=== PATIENT | female | born 1945 | race Caucasian/White ===

== ENCOUNTER 2016-07-20 14:07 | Outpatient (CLI) | payer MEDICARE | END 2016-07-20 14:08 | disposition home or self-care (01) | DX: G47.33 Obstructive sleep apnea (adult) (pediatric) (principal) | CPT/HCPCS: 99215; G0463 ==

== ENCOUNTER 2016-08-30 10:53 | Outpatient (CLI) | payer MEDICARE | END 2016-08-30 10:54 | disposition home or self-care (01) | DX: G47.33 Obstructive sleep apnea (adult) (pediatric) (principal) | CPT/HCPCS: 99214; G0463 ==

== ENCOUNTER 2016-09-28 09:22 | Outpatient (CLI) | payer MEDICARE | END 2016-09-28 09:23 | disposition home or self-care (01) | LOC: SC 09:22 | PROVIDERS: ATTEND Nurse Practitioner Family | DX: G47.33 Obstructive sleep apnea (adult) (pediatric) (principal); R42 Dizziness and giddiness | CPT/HCPCS: 99214; G0463; 99212 ==

== ENCOUNTER 2017-01-10 09:01 | Outpatient (CLI) | payer MEDICARE | END 2017-01-10 09:02 | disposition home or self-care (01) | LOC: SC 09:01 | PROVIDERS: ATTEND Nurse Practitioner Family | DX: G47.33 Obstructive sleep apnea (adult) (pediatric) (principal) | CPT/HCPCS: 99214; G0463; 99212 ==

== ENCOUNTER 2017-02-07 09:53 | Outpatient (CLI) | payer MEDICARE | END 2017-02-07 09:54 | disposition home or self-care (01) | LOC: SC 09:53 | PROVIDERS: ATTEND Nurse Practitioner Family | DX: G47.33 Obstructive sleep apnea (adult) (pediatric) (principal) | CPT/HCPCS: 99214; G0463; 99212 ==

== ENCOUNTER 2017-03-20 18:15 | Outpatient (CLI) | payer MEDICARE | END 2017-03-20 18:16 | disposition EMS.NT | LOC: EMS 18:15 | PROVIDERS: ATTEND Surgery | DX: R55 Syncope and collapse (principal) ==

== ENCOUNTER 2017-05-09 09:48 | Outpatient (CLI) | payer MEDICARE | END 2017-05-09 09:49 | disposition home or self-care (01) | LOC: SC 09:48 | PROVIDERS: ATTEND Nurse Practitioner Family | DX: G47.33 Obstructive sleep apnea (adult) (pediatric) (principal) | CPT/HCPCS: 99214; G0463; 99212 ==

== ENCOUNTER 2017-07-06 08:00 | Outpatient (CLI) | payer MEDICARE ==
[2017-07-06 18:39] LABS: BASOPHILS # (AUTO) 0.1 10^3/uL (0.0-0.1); BASOPHILS % (AUTO) 0.8 %; EOSINOPHILS # (AUTO) 0.2 10^3/uL (0.0-0.7); EOSINOPHILS % (AUTO) 2.3 %; HCT - HEMATOCRIT 40.5 % (37.0-47.0); HGB - HEMOGLOBIN 13.4 g/dL (12.0-16.0); LYMPHOCYTES # (AUTO) 0.9 10^3/uL (1.5-3.5); LYMPHOCYTES % (AUTO) 13.4 %; MEAN CORPUSCULAR HEMOGLOBIN 31.8 pg (27.0-31.0); MEAN CORPUSCULAR VOLUME 96.3 fL (81.0-99.0); MEAN PLATELET VOLUME 9.4 fL (7.9-10.8); MONOCYTES # (AUTO) 0.4 10^3/uL (0.0-1.0); MONOCYTES % (AUTO) 6.2 %; NEUTROPHILS # (AUTO) 5.1 10^3/uL (1.5-6.6); NEUTROPHILS % (AUTO) 77.3 %; NUCLEATED RED BLOOD CELLS AUTO 0.2 /100WBC; RED BLOOD COUNT 4.21 10^6/uL (4.20-5.40); UNCORRECTED WHITE BLOOD COUNT 6.6 x10^3/uL; WHITE BLOOD COUNT 6.6 x10^3/uL (4.8-10.8)
[2017-07-06 19:02] LABS: ALBUMIN/GLOBULIN RATIO 1.2 (1.0-2.2); BILIRUBIN,TOTAL 0.6 mg/dL (0.2-1.0); CALCIUM 9.4 mg/dL (8.5-10.3); CREATININE 1.4 mg/dL (0.4-1.0); POTASSIUM 4.4 mmol/L (3.5-5.0); TOTAL PROTEIN 7.7 g/dL (6.7-8.2)
[2017-07-06 19:10] LABS: HEMOGLOBIN A1C 0.6 g/dL
== END 2017-07-06 23:59 ==
LOC: LAB.WCP 08:00
PROVIDERS: ATTEND Family Medicine
DX: N18.3 Chronic kidney disease, stage 3 (moderate) (principal); R73.01 Impaired fasting glucose
CPT/HCPCS: 36415; 80053; 83036; 85025

== ENCOUNTER 2017-10-12 10:18 | Outpatient (CLI) | payer MEDICARE | END 2017-10-12 10:19 | disposition home or self-care (01) | LOC: SC 10:18 | PROVIDERS: ATTEND Nurse Practitioner Family | DX: G47.33 Obstructive sleep apnea (adult) (pediatric) (principal) | CPT/HCPCS: 99214; G0463; 99212 ==

== ENCOUNTER 2017-11-01 08:00 | Outpatient (CLI) | payer MEDICARE | END 2017-11-01 08:01 | disposition home or self-care (01) | LOC: LAB.R 08:00 | PROVIDERS: ATTEND Family Medicine | DX: R31.9 Hematuria, unspecified (principal) | CPT/HCPCS: 87086 ==

== ENCOUNTER 2018-08-28 08:23 | Outpatient (CLI) | payer MEDICARE | END 2018-08-28 08:24 | disposition critical access hospital (66) | LOC: EMS 08:23 | PROVIDERS: ATTEND Surgery | DX: R07.9 Chest pain, unspecified (principal) | CPT/HCPCS: A0425; A0427 ==

== ENCOUNTER 2018-08-28 08:46 | Emergency (ER) | payer MEDICARE ==
[2018-08-28 09:09] LABS: BASOPHILS # (AUTO) 0.1 10^3/uL (0.0-0.1); BASOPHILS % (AUTO) 0.9 %; EOSINOPHILS # (AUTO) 0.1 10^3/uL (0.0-0.7); EOSINOPHILS % (AUTO) 1.7 %; HGB - HEMOGLOBIN 13.9 g/dL (12.0-16.0); LYMPHOCYTES % (AUTO) 16.3 %; MEAN CORPUSCULAR HEMOGLOBIN 31.9 pg (27.0-31.0); MEAN CORPUSCULAR HGB CONC 34.6 g/dL (32.0-36.0); MEAN CORPUSCULAR VOLUME 92.2 fL (81.0-99.0); MEAN PLATELET VOLUME 8.1 fL (7.9-10.8); MONOCYTES # (AUTO) 0.3 10^3/uL (0.0-1.0); MONOCYTES % (AUTO) 5.4 %; NEUTROPHILS # (AUTO) 4.8 10^3/uL (1.5-6.6); NEUTROPHILS % (AUTO) 75.7 %; PLT - PLATELET COUNT 172 10^3/uL (130-450); RED BLOOD COUNT 4.37 10^6/uL (4.20-5.40); RED CELL DISTRIBUTION WIDTH 13.3 % (12.0-15.0); WHITE BLOOD COUNT 6.3 x10^3/uL (4.8-10.8)
--- NOTE | 2018-08-28 09:21 | ED Physician Documentation ---
PD HPI CHEST PAIN - Stated complaint Stated Complaint: CP - Chief complaint Chief Complaint: Cardiac - History obtained from History obtained from: Patient - History of Present Illness Timing - onset: How many hours ago (2), Today Timing - onset during: Rest (onset at rest at 7 am of left chest pain to left shoulder, associated with nausea and some dyspnea.) Timing - duration: Hours Timing - details: Abrupt onset. No: Still present (improvwed with NTG multiple enroute.) Quality: Pressure, Tightness. No: Sharp, Tearing, Stabbing Location: Left chest Radiation: Left upper extremity Associated symptoms: Shortness of air, Nausea. No: Vomiting, Feeling faint / dizzy, Palpitations, Cough Similar symptoms before: Has not had sx before (No history of vascular coronary disease. She had a pacemaker placed for bradycardia about 4 or 5 years ago in [facility]. She is on Plavix. She states at the time she had stress tests which did not show any coronary artery disease. She has been doing well. She had been prescribed nitroglycerin previously for esophageal spasms and took that today with this chest pain with slight improvement. She had more improvement on route by EMS with nitroglycerin as well. She arrived to the ER with faint residual discomfort.) Recently seen: Not recently seen Review of Systems Constitutional: denies: Fever, Chills Nose: denies: Rhinorrhea / runny nose, Congestion Throat: denies: Sore throat Cardiac: denies: Palpitations, Pedal edema, Calf pain Respiratory: denies: Dyspnea, Cough, Wheezing GI: reports: Nausea. denies: Abdominal Pain, Vomiting, Bloody / black stool : denies: Dysuria, Frequency Neurologic: denies: Generalized weakness, Focal weakness, Numbness, Near syncope, Syncope, Altered mental status, Headache Endocrine: denies: Weight loss, Weight gain, Easy bruising / bleeding PD PAST MEDICAL HISTORY - Past Medical History Cardiovascular: Hypertension, Arrhythmia, Other Respiratory: None Endocrine/Autoimmune: Type 2 diabetes GI: GERD DELIMER: None : None HEENT: None Psych: None Musculoskeletal: Osteoarthritis Derm: None - Past Surgical History Past Surgical History: Yes General: Cholecystectomy - Present Medications Home Medications: Ambulatory Orders Medication Instructions Recorded Confirmed Hydralazine HCl 10 mg PO BID 12/21/12 08/28/18 Potassium Chloride [Klor-Con M20] 20 meq PO BIDAC 12/21/12 08/28/18 Nitroglycerin [Nitrostat] 0.4 mg SL UD PRN 01/25/16 08/28/18 Clopidogrel [Plavix] 75 mg PO DAILY #30 tablet 02/21/16 08/28/18 - Allergies Allergies/Adverse Reactions: Allergies Allergy/AdvReac Type Severity Reaction Status Date / Time codeine Allergy Intermediate Nausea Verified 02/20/16 18:13 aspirin Allergy Unknown Verified 02/20/16 18:28 hydrocodone bitartrate * AdvReac Intermediate Nausea Verified 02/20/16 18:13 [From Vicodin] oxycodone HCl * AdvReac Intermediate Nausea Verified 02/20/16 18:13 [From Percocet] acetaminophen [From Tylenol] AdvReac Mild Nausea Verified 02/20/16 18:13 latex AdvReac Rash Verified 08/28/18 08:52 - Social History Does the pt smoke?: No Smoking Status: Never smoker Does the pt drink ETOH?: No Does the pt have substance abuse?: No - Immunizations Immunizations are current?: Yes - POLST Patient has POLST: No PD ED PE NORMAL - Vitals Vital signs reviewed: Yes - General General: Alert and oriented X 3, No acute distress, Well developed/nourished - HEENT HEENT: Pharynx benign - Neck Neck: Supple, no meningeal sign, No adenopathy - Cardiac Cardiac: RRR, No murmur - Respiratory Respiratory: Clear bilaterally, Other (mild left chestwall tenderness without rash nor sores. ) - Abdomen Abdomen: Normal bowel sounds, Soft, Non tender, Non distended, Other (obese) - Back Back: No CVA TTP - Derm Derm: Normal color - Extremities Extremities: No deformity, No tenderness to palpate, Normal ROM s pain, No edema, No calf tenderness / cord - Neuro Neuro: Alert and oriented X 3, No motor deficit, Normal speech Results - Vitals Vitals: Vital Signs - 24 hr 08/28/18 08/28/18 08/28/18 08:47 08:55 09:55 Temperature 36 C L Heart Rate 60 58 L 60 Respiratory 22 20 15 Rate Blood Pressure 146/78 H 146/78 H 148/76 H O2 Saturation 98 99 94 08/28/18 12:17 Temperature Heart Rate 60 Respiratory 18 Rate Blood Pressure 135/73 H O2 Saturation 97 Oxygen O2 Source Room air - EKG (time done) 08:52 Rate: Rate (enter#) (60) Rhythm: Paced Intervals: LBBB Ischemia: Non specific changes - Labs Labs: Laboratory Tests 08/28/18 08/28/18 08/28/18 09:06 09:06 09:06 WBC 6.3 RBC 4.37 Hgb 13.9 Hct 40.3 MCV 92.2 MCH 31.9 H MCHC 34.6 RDW 13.3 Plt Count 172 MPV 8.1 Neut # (Auto) 4.8 Lymph # (Auto) 1.0 L [place] # (Auto) 0.3 Eos # (Auto) 0.1 Baso # (Auto) 0.1 Absolute Nucleated RBC 0.00 Nucleated RBC % 0.0 Sodium 138 Potassium 3.8 Chloride 98 L Carbon Dioxide 28 Anion Gap 12.0 BUN 32 H Creatinine 1.1 H Estimated GFR (MDRD) 49 L Glucose 162 H Calcium 9.2 Total Bilirubin 1.6 H AST 20 ALT 15 Alkaline Phosphatase 83 Troponin I 0.06 Total Protein 7.2 Albumin 3.8 Globulin 3.4 Albumin/Globulin Ratio 1.1 Lipase 42 08/28/18 10:50 WBC RBC Hgb Hct MCV MCH MCHC RDW Plt Count MPV Neut # (Auto) Lymph # (Auto) [place] # (Auto) Eos # (Auto) Baso # (Auto) Absolute Nucleated RBC Nucleated RBC % Sodium Potassium Chloride Carbon Dioxide Anion Gap BUN Creatinine Estimated GFR (MDRD) Glucose Calcium Total Bilirubin AST ALT Alkaline Phosphatase Troponin I 0.47 Total Protein Albumin Globulin Albumin/Globulin Ratio Lipase - Rads (name of study) chest xray Radiology: Prelim report reviewed, EMP read contemporaneously (no acute process) PD MEDICAL DECISION MAKING - ED course Complexity details: reviewed results (Initial troponin was negative at 0.06. However pain had only been just under 2 hours prior and she had prolonged pain improved with nitro. Therefore did a repeat troponin at 2 hours after the first 1 and it is now 0.49. This would be more consistent with acute myocardial injury as she does not seem to have any heart failure. I talked with [facility] who said it is okay to transfer her to [facility] or [place]. [facility] did not have any beds available. I talked with the ammonium nitrate crystallizer and hospitalist at [place] and a accept the patient in transfer. She remained stable here in the ER without any recurrent chest pains. She was given a Nitropaste as well as an heparin drip. She had taken Plavix and is allergic to aspirin.), considered differential, d/w patient Departure - Departure Disposition: 02 Transfer Acute Care Hosp Clinical Impression: Chest pain at rest, Non-ST elevated myocardial infarction
[2018-08-28 09:23] LABS: ALBUMIN 3.8 g/dL (3.2-5.5); ALBUMIN/GLOBULIN RATIO 1.1 (1.0-2.2); BILIRUBIN,TOTAL 1.6 mg/dL (0.2-1.0); CALCIUM 9.2 mg/dL (8.5-10.3); CREATININE 1.1 mg/dL (0.4-1.0); TOTAL PROTEIN 7.2 g/dL (6.7-8.2)
[2018-08-28] MEDS ORDERED: KETOROLAC 30 MG/ML VIAL IVP STA (09:41)
[2018-08-28] MEDS ORDERED: MAG HYDROX/AL HYDROX/SIMETH 30 ML UDC PO STA (09:41)
[2018-08-28] MEDS ORDERED: NITROGLYCERIN 2% PASTE TOP STA (10:02)
--- NOTE | 2018-08-28 10:12 | XRAY Report ---
Reason: chest pain Procedure Date: 08/28/2018 Accession Number: [id number] / [id number] Procedure: XR - Chest 1 View X-Ray CPT Code: 67279 FULL RESULT: EXAM: CHEST RADIOGRAPHY EXAM DATE: 08/28/2018 10:03 AM. CLINICAL HISTORY: Chest pain. COMPARISON: CHEST 1 VIEW 02/20/2016 6:50 PM. TECHNIQUE: Upright AP view. FINDINGS: Lungs/Pleura: No focal opacities evident. No pleural effusion. No pneumothorax. Mediastinum: Mild cardiomegaly, as before. Pacemaker electrodes are now present projecting over the right atrial appendage and right ventricular apex with cables intact to the pulse generator in the mid left chest. There is minimal aortic arch calcification. Other: None. IMPRESSION: 1. No evidence of active cardiopulmonary disease. 2. Mild cardiomegaly, as before. 3. Dual-chamber pacemaker electrodes are present, new since 2015. RADIA
[2018-08-28] MEDS ORDERED: ONDANSETRON 4 MG/2 ML VIAL IVP STA (10:13)
[2018-08-28] MEDS ORDERED: MORPHINE 2 MG/ML CARPUJECT IVP STA (10:13)
[2018-08-28] MEDS ORDERED: HEPARIN 5,000 UNIT/ML VIAL IVP STA (11:52)
[2018-08-28] MEDS ORDERED: HEPARIN 25000UNITS/500ML (D5W) 25,000 UNIT/500 ML BAG IV STA (11:52)
[2018-08-28 13:39] VITALS: BP 131/77
== END 2018-08-28 13:40 | disposition short-term general hospital (02) ==
LOC: ED 08:46
DX: R07.9 Chest pain, unspecified (principal); I21.4 Non-ST elevation (NSTEMI) myocardial infarction; I44.7 Left bundle-branch block, unspecified; I10 Essential (primary) hypertension; E11.9 Type 2 diabetes mellitus without complications
CPT/HCPCS: 36415; 71045; 80053; 83690; 84484; 85025; 93005; 96365; 96375; 99284; A9270; 99285

== ENCOUNTER 2018-08-28 14:13 | Outpatient (CLI) | payer MEDICARE | END 2018-08-28 14:14 | disposition short-term general hospital (02) | LOC: EMS 14:13 | PROVIDERS: ATTEND Surgery | DX: I21.4 Non-ST elevation (NSTEMI) myocardial infarction (principal) | CPT/HCPCS: A0425; A0426 ==

== ENCOUNTER 2018-09-14 08:00 | Outpatient (CLI) | payer MEDICARE | END 2018-09-14 23:59 | disposition home or self-care (01) | LOC: LAB.WCP 08:00 | PROVIDERS: ATTEND Family Medicine | DX: I48.91 Unspecified atrial fibrillation (principal); Z79.01 Long term (current) use of anticoagulants ==

== ENCOUNTER 2018-09-21 08:00 | Outpatient (CLI) | payer MEDICARE | END 2018-09-21 23:59 | disposition home or self-care (01) | LOC: LAB.WCP 08:00 | PROVIDERS: ATTEND Nurse Practitioner | DX: I48.0 Paroxysmal atrial fibrillation (principal); Z79.01 Long term (current) use of anticoagulants ==

== ENCOUNTER 2018-09-28 08:00 | Outpatient (CLI) | payer MEDICARE | END 2018-09-28 23:59 | disposition home or self-care (01) | LOC: LAB.WCP 08:00 | PROVIDERS: ATTEND Nurse Practitioner | DX: I48.0 Paroxysmal atrial fibrillation (principal); Z79.01 Long term (current) use of anticoagulants ==

== ENCOUNTER 2018-11-12 13:15 | Outpatient (CLI) | payer MEDICARE | END 2018-11-12 13:16 | disposition home or self-care (01) | LOC: SC 13:15 | PROVIDERS: ATTEND Nurse Practitioner Family | DX: G47.33 Obstructive sleep apnea (adult) (pediatric) (principal); E66.01 Morbid (severe) obesity due to excess calories; Z68.41 Body mass index [BMI] 40.0-44.9, adult | CPT/HCPCS: 99214; G0463; 99212 ==

== ENCOUNTER 2018-11-28 19:30 | Outpatient (CLI) | payer MEDICARE | END 2018-11-28 19:31 | disposition home or self-care (01) | LOC: SC 19:30 | PROVIDERS: ATTEND Internal Medicine Pulmonary Disease | DX: G47.33 Obstructive sleep apnea (adult) (pediatric) (principal) | CPT/HCPCS: 95810 ==

== ENCOUNTER 2018-12-11 10:27 | Outpatient (CLI) | payer MEDICARE | END 2018-12-11 10:28 | disposition home or self-care (01) | LOC: SC 10:27 | PROVIDERS: ATTEND Nurse Practitioner Family | DX: G47.33 Obstructive sleep apnea (adult) (pediatric) (principal) | CPT/HCPCS: 99215; G0463; 99212 ==

== ENCOUNTER 2020-04-01 16:57 | Outpatient (CLI) | payer MEDICARE ==
--- NOTE | 2020-04-01 17:00 | XRAY Report ---
PROCEDURE: Chest 2 View X-Ray INDICATIONS: MUSCLE TWITCH TECHNIQUE: 2 view(s) of the chest. COMPARISON: Chest x-ray 08/28/2018 FINDINGS: Surgical changes and devices: Pacemaker. Lungs and pleura: There is mild appearance of left basilar/retrocardiac opacity particularly blunting of the costophrenic angle. Mediastinum: Mediastinal contours are normal. Heart size is enlarged. Bones and chest wall: No suspicious bony abnormalities. Soft tissues appear unremarkable. IMPRESSION: Left basilar/retrocardiac opacity blunting of the costophrenic angle. There is likely tr fernandez effusion. Area of superimposed atelectasis and/or pneumonia cannot be excluded. Reviewed by: Mana Morales MD on 04/01/2020 4:58 PM PDT Approved by: Mana Morales MD on 04/01/2020 4:58 PM PDT Station ID: [id number]
[2020-04-01 18:37] LABS: BASOPHILS % (AUTO) 0.7 %; EOSINOPHILS # (AUTO) 0.2 10^3/uL (0.0-0.7); EOSINOPHILS % (AUTO) 3.8 %; HGB - HEMOGLOBIN 14.7 g/dL (12.0-16.0); LYMPHOCYTES # (AUTO) 1.2 10^3/uL (1.5-3.5); LYMPHOCYTES % (AUTO) 19.5 %; MEAN CORPUSCULAR HEMOGLOBIN 31.2 pg (27.0-31.0); MEAN CORPUSCULAR VOLUME 97.7 fL (81.0-99.0); MONOCYTES # (AUTO) 0.4 10^3/uL (0.0-1.0); MONOCYTES % (AUTO) 6.3 %; NEUTROPHILS # (AUTO) 4.2 10^3/uL (1.5-6.6); NEUTROPHILS % (AUTO) 69.5 %; PLT - PLATELET COUNT 191 10^3/uL (130-450); RED BLOOD COUNT 4.71 10^6/uL (4.20-5.40); RED CELL DISTRIBUTION WIDTH 12.7 % (12.0-15.0)
[2020-04-01 18:55] LABS: ALBUMIN 4.1 g/dL (3.2-5.5); ALBUMIN/GLOBULIN RATIO 1.4 (1.0-2.2); ALKALINE PHOSPHATASE 60 IU/L (42-121); ALT ALANINE AMINOTRANSFERASE 12 IU/L (10-60); AST ASPARTATE AMINOTRANSFERASE 15 IU/L (10-42); BILIRUBIN,TOTAL 0.9 mg/dL (0.2-1.0); BUN - BLOOD UREA NITROGEN 41 mg/dL (6-20); CALCIUM 9.3 mg/dL (8.5-10.3); CARBON DIOXIDE - CO2 28 mmol/L (21-32); CHLORIDE 104 mmol/L (101-111); CHOL/HDL RATIO 2.7 (<4.4); CHOLESTEROL 123 mg/dL; CREATININE 1.2 mg/dL (0.4-1.0); GLUCOSE 106 mg/dL (70-100); HDL CHOLESTEROL 46 mg/dL; LDL CHOLESTEROL,CALCULATED 39 mg/dL; LDL/HDL RATIO 0.8 (<4.4); SODIUM 142 mmol/L (135-145); TOTAL PROTEIN 7.1 g/dL (6.7-8.2); VLDL CHOLESTEROL 38 mg/dL
[2020-04-01 19:34] LABS: BILIRUBIN,URINE NEGATIVE (NEGATIVE); GLUCOSE, URINE (UA) NEGATIVE (NEGATIVE); KETONES,URINE (UA) NEGATIVE (NEGATIVE); LEUKOCYTE ESTERASE, URINE NEGATIVE (NEGATIVE); NITRITE,URINE NEGATIVE (NEGATIVE); OCCULT BLOOD,URINE NEGATIVE (NEGATIVE); PH,URINE 5.5 PH (5.0-7.5); PROTEIN,URINE NEGATIVE (NEGATIVE); UROBILINOGEN,URINE 0.2 (NORMAL) E.U./dL (NORMAL)
[2020-04-01 19:45] LABS: BACTERIA,URINE None Seen /HPF (None Seen); CASTS, URINE 11-25 Hyaline Casts /LPF; CLARITY,URINE CLEAR (CLEAR); RBC,URINE None Seen /HPF (0-5); SQUAMOUS EPITHELIAL CELL,UR NONE SEEN (<= Few)
[2020-04-01 20:09] LABS: HEMOGLOBIN A1c% 5.5 % (4.27-6.07)
== END 2020-04-01 23:59 | disposition home or self-care (01) ==
LOC: DI.WCP 16:57
PROVIDERS: ATTEND Family Medicine
DX: R25.3 Fasciculation (principal); I42.8 Other cardiomyopathies; Z95.0 Presence of cardiac pacemaker; R73.01 Impaired fasting glucose; E78.5 Hyperlipidemia, unspecified; N18.3 Chronic kidney disease, stage 3 (moderate)
CPT/HCPCS: 36415; 71046; 80053; 80061; 81001; 83036; 83721; 83735; 85025; 87086

== ENCOUNTER 2021-02-02 13:43 | Outpatient (CLI) | payer MEDICARE ==
[2021-02-02 18:41] LABS: BASOPHILS # (AUTO) 0.1 10^3/uL (0.0-0.1); BASOPHILS % (AUTO) 0.8 %; EOSINOPHILS # (AUTO) 0.2 10^3/uL (0.0-0.7); EOSINOPHILS % (AUTO) 2.9 %; HCT - HEMATOCRIT 46.4 % (37.0-47.0); HGB - HEMOGLOBIN 15.2 g/dL (12.0-16.0); LYMPHOCYTES # (AUTO) 1.4 10^3/uL (1.5-3.5); LYMPHOCYTES % (AUTO) 23.3 %; MEAN CORPUSCULAR HEMOGLOBIN 32.5 pg (27.0-31.0); MEAN CORPUSCULAR HGB CONC 32.8 g/dL (32.0-36.0); MEAN CORPUSCULAR VOLUME 99.4 fL (81.0-99.0); MEAN PLATELET VOLUME 10.8 fL (7.9-10.8); MONOCYTES # (AUTO) 0.4 10^3/uL (0.0-1.0); MONOCYTES % (AUTO) 7.2 %; NEUTROPHILS % (AUTO) 65.6 %; PLT - PLATELET COUNT 209 10^3/uL (130-450); RED BLOOD COUNT 4.67 10^6/uL (4.20-5.40); RED CELL DISTRIBUTION WIDTH 12.7 % (12.0-15.0); WHITE BLOOD COUNT 6.2 x10^3/uL (4.8-10.8)
[2021-02-02 18:52] LABS: BILIRUBIN,URINE NEGATIVE (NEGATIVE); GLUCOSE, URINE (UA) NEGATIVE (NEGATIVE); KETONES,URINE (UA) NEGATIVE (NEGATIVE); LEUKOCYTE ESTERASE, URINE NEGATIVE (NEGATIVE); NITRITE,URINE NEGATIVE (NEGATIVE); OCCULT BLOOD,URINE NEGATIVE (NEGATIVE); PROTEIN,URINE NEGATIVE (NEGATIVE); UROBILINOGEN,URINE 0.2 (NORMAL) E.U./dL (NORMAL)
[2021-02-02 18:55] LABS: ALBUMIN 4.1 g/dL (3.2-5.5); ALBUMIN/GLOBULIN RATIO 1.4 (1.0-2.2); ALKALINE PHOSPHATASE 58 IU/L (42-121); ALT ALANINE AMINOTRANSFERASE 15 IU/L (10-60); AST ASPARTATE AMINOTRANSFERASE 17 IU/L (10-42); BILIRUBIN,TOTAL 1.2 mg/dL (0.2-1.0); BUN - BLOOD UREA NITROGEN 40 mg/dL (6-20); CALCIUM 9.2 mg/dL (8.5-10.3); CARBON DIOXIDE - CO2 29 mmol/L (21-32); CHLORIDE 102 mmol/L (101-111); CHOL/HDL RATIO 4.5 (<4.4); CHOLESTEROL 228 mg/dL; CLARITY,URINE CLEAR (CLEAR); CREATININE 1.2 mg/dL (0.4-1.0); GFR - MDRD 44 (>89); GLUCOSE 110 mg/dL (70-100); HDL CHOLESTEROL 51 mg/dL; LDL CHOLESTEROL,CALCULATED 137 mg/dL; LDL/HDL RATIO 2.7 (<4.4); POTASSIUM 4.7 mmol/L (3.5-5.0); SODIUM 141 mmol/L (135-145); TRIGLYCERIDES 201 mg/dL; URIC ACID 9.4 mg/dL (2.6-7.2); VLDL CHOLESTEROL 40 mg/dL
[2021-02-02 18:56] LABS: THYROID STIMULATING HORMONE 3.89 uIU/mL (0.34-5.60)
[2021-02-02 19:18] LABS: BACTERIA,URINE Many /HPF (None Seen); RBC,URINE None Seen /HPF (0-5); SQUAMOUS EPITHELIAL CELL,UR MANY Squamous (<= Few); WBC,URINE 0-3 /HPF (0-5)
[2021-02-02 20:55] LABS: ESTIMATED AVERAGE GLUCOSE 111 mg/dL (70-100); HEMOGLOBIN A1c% 5.5 % (4.27-6.07)
== END 2021-02-02 23:59 | disposition home or self-care (01) ==
LOC: LAB.WCP 13:43
PROVIDERS: ATTEND Family Medicine
DX: E11.9 Type 2 diabetes mellitus without complications (principal); F03.90 Unspecified dementia, unspecified severity, without behavioral disturbance, psychotic disturbance, mood disturbance, and anxiety
CPT/HCPCS: 36415; 80053; 80061; 81001; 82607; 83036; 83721; 84443; 84550; 85025; 87086

== ENCOUNTER 2021-04-06 17:07 | Observation (INO) | payer MEDICARE ==
--- NOTE | 2021-04-06 17:40 | ED Physician Documentation ---
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 : None HEENT: None Psych: None Musculoskeletal: Osteoarthritis Derm: None - Past Surgical History Past Surgical History: Yes General: Cholecystectomy - Present Medications Home Medications: Ambulatory Orders Medication Instructions Recorded Confirmed Hydralazine HCl 10 mg PO BID 12/21/12 08/28/18 Potassium Chloride [Klor-Con M20] 20 meq PO BIDAC 12/21/12 08/28/18 Nitroglycerin [Nitrostat] 0.4 mg SL UD PRN 01/25/16 08/28/18 Clopidogrel [Plavix] 75 mg PO DAILY #30 tablet 02/21/16 08/28/18 - Allergies Allergies/Adverse Reactions: Allergies Allergy/AdvReac Type Severity Reaction Status Date / Time codeine Allergy Intermediate Nausea Verified 04/06/21 17:21 aspirin Allergy Unknown Verified 04/06/21 17:21 metoprolol Allergy Unknown Verified 04/06/21 17:21 morphine Allergy Unknown Verified 04/06/21 17:21 simvastatin [From Zocor] Allergy Unknown Verified 04/06/21 17:21 Sulfa (Sulfonamide Allergy Unknown Verified 04/06/21 17:21 Antibiotics) hydrocodone bitartrate * AdvReac Intermediate Nausea Verified 04/06/21 17:21 [From Vicodin] oxycodone HCl * AdvReac Intermediate Nausea Verified 04/06/21 17:21 [From Percocet] acetaminophen [From Tylenol] AdvReac Mild Nausea Verified 04/06/21 17:21 latex AdvReac Rash Verified 04/06/21 17:21 - Social History Does the pt smoke?: No Smoking Status: Never smoker Does the pt drink ETOH?: No Does the pt have substance abuse?: No - Immunizations Immunizations are current?: Yes - POLST Patient has POLST: No Results - Vitals Vitals: Vital Signs - 24 hr 04/06/21 04/06/21 17:21 17:24 Temperature 36.4 C L 36.5 C Heart Rate 76 76 Respiratory 20 20 Rate Blood Pressure 138/74 H 138/74 H O2 Saturation 75 L 95 Oxygen O2 Source Nasal cannula Oxygen Flow Rate 4 - EKG (time done) No standard instances Rate: Rate (enter#) (76) Rhythm: NSR [place]: Normal Intervals: LBBB Ischemia: Other (ST elevation due to IVCD)
--- NOTE | 2021-04-06 17:42 | XRAY Report ---
PROCEDURE: Chest 1 View X-Ray INDICATIONS: Chest Pain TECHNIQUE: One view of the chest was acquired. COMPARISON: Chest x-ray, two-view, 04/01/2020. FINDINGS: Surgical changes and devices: There is a cardiac pacemaker in appropriate position. Lungs and pleura: Bilateral hilar infiltrates consistent with pulmonary edema. Small pleural effusio ns are present bilaterally. No pneumothorax. Mediastinum: Mediastinal contours appear normal. Heart size is markedly enlarged. Bones and chest wall: No suspicious bony lesions. Overlying soft tissues appear unremarkable. IMPRESSION: 1. Marked cardiomegaly. 2. Congestive heart failure. Reviewed by: Edgard Porter MD on 04/06/2021 5:40 PM PDT Approved by: Edgard Porter MD on 04/06/2021 5:40 PM PDT Station ID: [id number]
[2021-04-06 17:49] LABS: BASOPHILS % (AUTO) 0.5 %; EOSINOPHILS % (AUTO) 0.2 %; HCT - HEMATOCRIT 42.4 % (37.0-47.0); HGB - HEMOGLOBIN 13.2 g/dL (12.0-16.0); LYMPHOCYTES # (AUTO) 0.6 10^3/uL (1.5-3.5); LYMPHOCYTES % (AUTO) 10.2 %; MEAN CORPUSCULAR HEMOGLOBIN 31.6 pg (27.0-31.0); MEAN CORPUSCULAR HGB CONC 31.1 g/dL (32.0-36.0); MEAN CORPUSCULAR VOLUME 101.4 fL (81.0-99.0); MEAN PLATELET VOLUME 10.1 fL (7.9-10.8); MONOCYTES # (AUTO) 0.2 10^3/uL (0.0-1.0); MONOCYTES % (AUTO) 3.4 %; NEUTROPHILS # (AUTO) 4.8 10^3/uL (1.5-6.6); NEUTROPHILS % (AUTO) 85.5 %; PLT - PLATELET COUNT 178 10^3/uL (130-450); RED BLOOD COUNT 4.18 10^6/uL (4.20-5.40); WHITE BLOOD COUNT 5.6 x10^3/uL (4.8-10.8)
[2021-04-06] MEDS ORDERED: ONDANSETRON 4 MG/2 ML VIAL IVP STA (17:50)
[2021-04-06 18:05] LABS: ALBUMIN 3.7 g/dL (3.2-5.5); ALBUMIN/GLOBULIN RATIO 1.2 (1.0-2.2); BILIRUBIN,TOTAL 1.1 mg/dL (0.2-1.0); CALCIUM 9.2 mg/dL (8.5-10.3); CREATININE 1.2 mg/dL (0.4-1.0); POTASSIUM 5.4 mmol/L (3.5-5.0); TOTAL PROTEIN 6.9 g/dL (6.7-8.2)
[2021-04-06] MEDS ORDERED: FUROSEMIDE 40 MG/4 ML VIAL IVP STA (18:18)
[2021-04-06] MEDS ORDERED: ACETAMINOPHEN 325 MG TABLET PO PRN (20:52)
[2021-04-06] MEDS ORDERED: SODIUM CHLORIDE FLUSH 0.9% 10 ML SYRINGE IVP PRN (20:52)
[2021-04-06] MEDS ORDERED: ONDANSETRON 4 MG/2 ML VIAL IVP PRN (20:52)
--- NOTE | 2021-04-06 21:04 | HISTORY & PHYSICAL EXAMINATION ---
Chief Complaint - Chief Complaint Chief Complaint: SOA History of Present Illness - Admitted From Admitted From:: ED - History Obtained From History obtained from: ED provider and EMR review - History of Present Illness HPI Comment/Other: This is a 76-year-old white female with a history of morbid obesity, sleep apnea who is ordered to be on CPAP but she does not use it, history of hypertension, prior bradycardia that required pacemaker implantation and Hx of diabetes me llitus. The patient has been short of breath for a week and family informed the ED doctor that she has been using sublingual nitroglycerin many times a day. The patient cannot remember if he she has had chest pain or give details about the shortness of breath but the family helped with her answers. Today she went to her PCP where apparently an oxygen saturation was documented at 87% on room air but no specific orders were made. Back at home, the daughter noticed that the patient had much worsening tachypnea and sounded like she was "gurgling" while sleeping upright in a recliner. The patient presented to the emergency room and was found to be hypoxic. On 4 L of oxygen she is saturating 92%. A chest x-ray showed that she has cardiomegaly and pulmonary edema. Significant labs show a BNP of 2500 (whereas the last BNP in 2016 was 250). Her EKG shows a LBBB, but this is not new. Her last Echo done here was in 2013, and showed a "mildly depressed LVEF". The patient has received Lasix 40 mg IV in the ED, but no Morphine, since it is listed as an allergy, and the Hospitalist team is called for further management of a CHF exacerbation. 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 : reports: None HEENT: reports: None Psych: reports: None Musculoskeletal: reports: Osteoarthritis Derm: reports: None MRSA Hx?: No - Past Surgical History General: reports: Cholecystectomy - Family & Social History Family History Comment/Other: Unavailable, as pt is obtunded Living arrangement: At home - POLST Patient has POLST: No Meds/Allgy - Home Medications Home Medications: Ambulatory Orders Medication Instructions Recorded Confirmed Hydralazine HCl 10 mg PO BID 12/21/12 08/28/18 Potassium Chloride [Klor-Con M20] 20 meq PO BIDAC 12/21/12 08/28/18 Nitroglycerin [Nitrostat] 0.4 mg SL UD PRN 01/25/16 08/28/18 Clopidogrel [Plavix] 75 mg PO DAILY #30 tablet 02/21/16 08/28/18 - Allergies Allergies/Adverse Reactions: Allergies Allergy/AdvReac Type Severity Reaction Status Date / Time codeine Allergy Intermediate Nausea Verified 04/06/21 17:21 aspirin Allergy Unknown Verified 04/06/21 17:21 metoprolol Allergy Unknown Verified 04/06/21 17:21 morphine Allergy Unknown Verified 04/06/21 17:21 simvastatin [From Zocor] Allergy Unknown Verified 04/06/21 17:21 Sulfa (Sulfonamide Allergy Unknown Verified 04/06/21 17:21 Antibiotics) hydrocodone bitartrate * AdvReac Intermediate Nausea Verified 04/06/21 17:21 [From Vicodin] oxycodone HCl * AdvReac Intermediate Nausea Verified 04/06/21 17:21 [From Percocet] acetaminophen [From Tylenol] AdvReac Mild Nausea Verified 04/06/21 17:21 latex AdvReac Rash Verified 04/06/21 17:21 Review of Systems - Cardiovascular Cariovascular: reports: Exertional dyspnea - Respiratory Respiratory: reports: Orthopnea, SOB at rest, SOB with exertion - All Other Systems All Other Systems: reports: Other (Unable to obtain information, as pt is currently obtunded) Exam - Vital Signs Reviewed Vital Signs: Yes Vital Signs: Vital Signs x48h Temp Pulse Resp BP Pulse Ox 04/06/21 20:30 62 20 119/68 100 04/06/21 20:00 36.5 C 63 20 117/62 97 04/06/21 19:30 64 16 117/61 96 04/06/21 19:00 66 20 114/67 96 04/06/21 18:24 62 20 110/77 96 04/06/21 17:54 67 16 100/72 96 04/06/21 17:24 36.5 C 76 20 138/74 H 95 04/06/21 17:21 36.4 C L 76 20 138/74 H 75 L - Physical Exam General Appearance: positive: No acute distress, Lethargic, Other (Arouses only to sternal rub) Eyes Bilateral: positive: Other (Asleep) ENT: positive: Other (Obese and cannot examine JVP) Neck: positive: Nml inspection Respiratory: positive: No respiratory distress, Breath sounds nml (anteriorly) Cardiovascular: positive: Regular rate & rhythm, Systolic murmur (3/6, harsh, late-peaking, heard loudest at base, no gallop) Abdomen: positive: Non-tender, Nml bowel sounds, No distention Skin: positive: Warm, Dry Extremities: positive: Other (4+ edema to posterior thighs) Neurologic/Psychiatric: positive: Other (Obtunded, opens eyes to sternal rub) Conclusion/Plan - Problem List (1) Pulmonary edema Conclusion/Plan: Place the patient in Observation status, on telemetry. Recheck troponin to assure they are "flat". Continue with Lasix 40 mg IV twice daily, 40 mg chosen because of her CKD. Restart her Hydralazine, Plavix and other home meds when they are reconciled. Begin a low sodium diet. Follow strict I's and O's and daily weights. Follow her BUN/creat, BNP and Mag daily. Obtain a complete Echo, using Definity if necessary, to improve images. Start B-tristan, MORIAH or ARB and Spironolactone, if the EF is < 40% by Echo. (2) Murmur Conclusion/Plan: She has a 3/6 late-peaking systolic murmur at the base, which I suspect is aortic stenosis, p-robably sevbere. This may be the cause of her CHF. A complete Echo has been ordered. She normally goes to [facility], where she might have a Blueprint Developer that we may need to contact for recommendations (3) Altered mental status Conclusion/Plan: In the ED, she was confused but conversing. In her hospital room, she is now obtunded. O2 sats are 100%, and she is probably over-oxygenating. Will order target saturation at 88% or higher, to allow hypoxic drive to ventilate. If no better, will obtain ABG, and head CT. Addendum: her O2 was turned down from 4L to 2L and she became more awake, then down to 1L and she was still saturating at 92% (4) EARLE (obstructive sleep apnea) Conclusion/Plan: Unfortunately, she is non-compliant with CPAP, per Hx. Will supplement O2, sats of 88% or higher are acceptable. (5) CKD (chronic kidney disease) Conclusion/Plan: Her BUN/creat are abnormal but at her usual baseline. Avoid nephrotoxins (6) Diabetes Conclusion/Plan: Will order a carb controlled diet with hypoglycemia protocol and fingerstick checks with sliding scale insulin coverage while here. Obtain A1c with morning labs. (7) Morbid obesity with BMI of 40.0-44.9, adult Conclusion/Plan: As per Hx. - Lab Results Fish Bones: 04/06/21 17:39 04/06/21 17:39 - Diagnostic Imaging Results Diagnostic Imaging Results: positive: Final report reviewed
[2021-04-06 21:58] LABS: B. PARAPERTUSSIS- RESP PCR PAN NOT DETECTED; B. PERTUSSIS- RESP PCR PANEL NOT DETECTED; C. PNEUMONIAE- RESP PCR PANEL NOT DETECTED; CORONAVIRUS 229E-RESP PCR NOT DETECTED; CORONAVIRUS HKU1-RESP PCR NOT DETECTED; CORONAVIRUS NL63-RESP PCR NOT DETECTED; CORONAVIRUS OC43-RESP PCR NOT DETECTED; HUMAN METAPNEUMOVIRUS NOT DETECTED; INFLUENZA A- RESP PCR PANEL NOT DETECTED; INFLUENZA B - RESP PCR PANEL NOT DETECTED; M. PNEUMONIAE- RESP PCR PANEL NOT DETECTED; PARAINFLUENZA VIRUS 1 NOT DETECTED; PARAINFLUENZA VIRUS 2 NOT DETECTED; PARAINFLUENZA VIRUS 3 NOT DETECTED; PARAINFLUENZA VIRUS 4 NOT DETECTED; RHINOVIRUS/ENTEROVIRUS NOT DETECTED; RSV- RESP PCR PANEL NOT DETECTED; SARS-CoV-2 -RESP PCR PANEL NOT DETECTED
[2021-04-06] MEDS: INSULIN ASPART 300 UNIT/3 ML PEN SUBQ SCH (23:28)
[2021-04-06] MEDS: ENOXAPARIN 40 MG/0.4 ML SYRINGE SUBQ SCH (23:43)
[2021-04-06] MEDS: SODIUM CHLORIDE FLUSH 0.9% 10 ML SYRINGE IVP SCH (23:43)
[2021-04-07 00:25] LABS: BILIRUBIN,URINE NEGATIVE (NEGATIVE); GLUCOSE, URINE (UA) NEGATIVE (NEGATIVE); KETONES,URINE (UA) NEGATIVE (NEGATIVE); LEUKOCYTE ESTERASE, URINE NEGATIVE (NEGATIVE); NITRITE,URINE NEGATIVE (NEGATIVE); OCCULT BLOOD,URINE NEGATIVE (NEGATIVE); PROTEIN,URINE NEGATIVE (NEGATIVE); UROBILINOGEN,URINE 0.2 (NORMAL) E.U./dL (NORMAL)
[2021-04-07 00:31] LABS: BACTERIA,URINE Few /HPF (None Seen); CLARITY,URINE CLEAR (CLEAR); RBC,URINE 0-5 /HPF (0-5); SQUAMOUS EPITHELIAL CELL,UR FEW Squamous (<= Few); WBC,URINE 0-3 /HPF (0-5)
[2021-04-07] MEDS ORDERED: FUROSEMIDE 40 MG/4 ML VIAL IVP SCH (06:00)
[2021-04-07 06:23] LABS: HCT - HEMATOCRIT 42.9 % (37.0-47.0); HGB - HEMOGLOBIN 13.4 g/dL (12.0-16.0); MEAN CORPUSCULAR HEMOGLOBIN 31.8 pg (27.0-31.0); MEAN CORPUSCULAR HGB CONC 31.2 g/dL (32.0-36.0); MEAN CORPUSCULAR VOLUME 101.7 fL (81.0-99.0); MEAN PLATELET VOLUME 9.9 fL (7.9-10.8); RED BLOOD COUNT 4.22 10^6/uL (4.20-5.40); RED CELL DISTRIBUTION WIDTH 12.8 % (12.0-15.0); WHITE BLOOD COUNT 6.1 x10^3/uL (4.8-10.8)
[2021-04-07 06:29] LABS: CALCIUM 8.8 mg/dL (8.5-10.3); CREATININE 1.4 mg/dL (0.4-1.0); MAGNESIUM 2.1 mg/dL (1.7-2.8); POTASSIUM 4.9 mmol/L (3.5-5.0)
[2021-04-07] MEDS: INSULIN ASPART 300 UNIT/3 ML PEN SUBQ SCH ×2 (07:28→12:13)
[2021-04-07] MEDS: ENOXAPARIN 40 MG/0.4 ML SYRINGE SUBQ SCH (08:12)
[2021-04-07] MEDS: SODIUM CHLORIDE FLUSH 0.9% 10 ML SYRINGE IVP SCH (08:14)
[2021-04-07 08:51] LABS: ESTIMATED AVERAGE GLUCOSE 105 mg/dL (70-100); HEMOGLOBIN A1c% 5.3 % (4.27-6.07)
--- NOTE | 2021-04-07 09:19 | PHARMACY PROGRESS NOTE ---
- Best Possible Medication History Admit Date and Time: 04/06/212051 Processed by: Pharmacy Medication History completed: Yes Patient Interview: Completed (MED REC COMPLETED BY PHARMAY CRANE HOOKER; PATIENT ABLE TO CONFIRM HOME MEDICATIONS) As the person ultimately responsible for medication therapy, providers are able to order a medication from an existing home medication list in [facility] via the "Reconcile Routine" prior to Confirmation of that medication by support assistant. Such practice is discouraged except when the physician, in their clinical judgment, deems that a medical need exists for a medication without regard to previous use.
--- NOTE | 2021-04-07 11:38 | DISCHARGE SUMMARY ---
Discharge Summary Admit Date: 04/06/21 Discharge Date: 04/07/21 Discharging Provider: Arin Quintana Primary Care Provider: Isabelle Nguyen Code Status: Attempt Resuscitation Condition at Discharge: Fair Discharge Disposition: 01 Home, Self Care - DIAGNOSES Admission Diagnoses: Pulmonary edema Murmur Altered mental status Obstructive sleep apnea Chronic kidney disease Diabetes Morbid obesity with BMI of 40-44.9 adult Discharge Diagnoses with Status of Each Condition: Pulmonary edema: Acute. Improved with diuresis Severe aortic stenosis: Chronic. Patient to follow-up with cardiology on April 23, 2021 Altered mental status: Acute. Likely secondary tohypoxia. Resolved Obstructive sleep apnea: Chronic. Patient does not tolerate CPAP. Chronic kidney disease Diabetes: Chronic. Stable Morbid obesity with BMI of 40-44.9 adult: Chronic. 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 The patient has been short of breath for a week and family informed the ED doctor that she has been using sublingual nitroglycerin many times a day. The patient cannot remember if he she has had chest pain or give details about the shortness of breath but the family helped with her answers. Today she went to her PCP where apparently an oxygen saturation was documented at 87% on room air but no specific orders were made. Back at home, the daughter noticed that the patient had much worsening tachypnea and sounded like she was "gurgling" while sleeping upright in a recliner. The patient presented to the emergency room and was found to be hypoxic. On 4 L of oxygen she is saturating 92%. A chest x-ray showed that she has cardiomegaly and pulmonary edema. Significant labs show a BNP of 2500 (whereas the last BNP in 2016 was 250). Her EKG shows a LBBB, but this is not new. Her last Echo done here was in 2013, and showed a "mildly depressed LVEF". The patient has received Lasix 40 mg IV in the ED, but no Morphine, since it is listed as an allergy, and the Hospitalist team is called for further management of a CHF exacerbation. - HOSPITAL COURSE Hospital Course: Patient was treated with Lasix 40 mg IV twice daily during her hospital stay. Her respiratory status improved significantly. By the time of discharge she was requiring 0.5 L of oxygen via nasal cannula to keep her oxygen in the 90s. However with activity her oxygen saturation drops into the 80s as a result she will be discharged home with supplemental oxygen. Her mental status improved significantly. By the time of discharge she was back to her baseline. She is able to carry on a reasonable conversation. She had a 2D echocardiogram done on 04/07/2021 which showed severe left ventricular enlargement. Moderate concentric left ventricular hypertrophy. Overall left ventricular systolic function is moderately globally impaired with an ejection fraction of 35 to 40%. Pseudonormal left ventricular filling pattern consistent with grade 2 diastolic dysfunction. No obvious regional wall motion abnormality noted though assessment is difficult in the presence of arrhythmia. Falls chordae tendon they noted in the left ventricle. Right ventricle appeared mildly enlarged. The right ventricular systolic function was normal. Pacemaker leads seen in the right atrium and right ventricle. Left atrium: Severe increase Left atrial volume index. Right atrium: Moderate to severe right atrial enlargement. Aortic valve: Severe aortic stenosis with peak/mean pressure gradient of 97 mmHg/65mmHg Trivial pericardial effusion present. No mass or thrombus identified. There was no pleural effusion noted. I had a conversation with the patient at bedside and her daughter Gale over the phone, Emphasizing the importance of cardiology follow-up. The patient's straight knife machine cutter was Dr. Jennie Canada with [facility] cardiology. However she is recently retired. They have an appointment to establish with a new straight knife machine cutter on April 23, 2021. Patient is being discharged in stable condition with supplemental oxygen for home. - ALLERGIES Allergies/Adverse Reactions: Allergies Allergy/AdvReac Type Severity Reaction Status Date / Time codeine Allergy Intermediate Nausea Verified 04/06/21 17:21 aspirin Allergy Unknown Verified 04/06/21 17:21 egg Allergy Cramps Verified 04/07/21 09:33 metoprolol Allergy Unknown Verified 04/06/21 17:21 morphine Allergy Unknown Verified 04/06/21 17:21 simvastatin [From Zocor] Allergy Unknown Verified 04/06/21 17:21 Sulfa (Sulfonamide Allergy Unknown Verified 04/06/21 17:21 Antibiotics) hydrocodone bitartrate * AdvReac Intermediate Nausea Verified 04/06/21 17:21 [From Vicodin] oxycodone HCl * AdvReac Intermediate Nausea Verified 04/06/21 17:21 [From Percocet] acetaminophen [From Tylenol] AdvReac Mild Nausea Verified 04/06/21 17:21 latex AdvReac Rash Verified 04/06/21 17:21 - MEDICATIONS Home Medications: Ambulatory Orders Medication Instructions Recorded Confirmed Hydralazine HCl 10 mg PO BID 12/21/12 04/07/21 Potassium Chloride [Klor-Con M20] 20 meq PO BIDAC 12/21/12 04/07/21 Atorvastatin [Lipitor] 40 mg PO QPM 04/07/21 04/07/21 Dabigatran [Pradaxa] 150 mg PO BID 04/07/21 04/07/21 Furosemide [Lasix] 40 mg PO DAILY 04/07/21 04/07/21 Metoprolol Tartrate [Lopressor] 12.5 mg PO BID 04/07/21 04/07/21 Multivitamin 1 tab PO DAILY 04/07/21 04/07/21 Nitroglycerin [Nitrostat] 0.4 mg SL PRN PRN 04/07/21 04/07/21 Potassium Citrate [Potassium 15 meq PO BID 04/07/21 04/07/21 Citrate ER] - PHYSICAL EXAM AT DISCHARGE General Appearance: positive: No acute distress, Alert Eyes Bilateral: positive: PERRL, EOMI ENT: positive: No signs of dehydration Neck: positive: No JVD, Trachea midline Respiratory: positive: Chest non-tender, No respiratory distress, Breath sounds nml, Other (Mild crackles in lung bases) Cardiovascular: positive: Regular rate & rhythm, Systolic murmur (loud) Abdomen: positive: Non-tender, No organomegaly, Nml bowel sounds, No distention. negative: Guarding, Rebound Skin: positive: No rash, Warm, Dry Extremities: positive: Non-tender, Full ROM, Pedal edema (trace) Neurologic/Psychiatric: positive: Oriented x3, Motor nml - LABS Result Diagrams: 04/07/21 06:15 04/07/21 06:15 - TIME SPENT Time Spent in Discharge (Minutes): 20
[2021-04-07 11:41] VITALS: BP 109/77
--- NOTE | 2021-04-07 11:42 | Discharge Plan ---
Discharge Plan Problem Reviewed?: Yes Disposition: Home, Self Care Condition: Fair Diet: Cardiac Activity Restrictions: Activity as Tolerated Health Concerns: You were admitted to the hospital with acute respiratory failure and hypoxia. In the emergency room your oxygen's level was noted to be 87% on room air. You required 4 L of oxygen to keep your oxygen level around 92%. You had a chest x- ray done which showed you had an enlarged heart and some fluid in the lungs. He also had an echocardiogram done. This is a ultrasound of the heart. It showed severe aortic stenosis and significantly decreased heart function with an ejection fraction of 35%. UA treated with Lasix IV while in the hospital. This improved your respiratory status. It was noted that every time you get up to walk your oxygen level drops. As a result You were assessed for oxygen needs at home and will be provided oxygen upon discharge As a result of the findings of your echocardiogram you have have been strongly encouraged to follow-up with a spool maker. This was also discussed with your daughter Gale who expressed understanding and is agreeable with the plan. You have an appointment to see [facility] cardiology on April 23, 2021. You have been advised to keep the appointment. You will be discharged in stable condition. You may also follow-up with your primary care physician Dr. Baljit Hale in 7 days. No Smoking: If you smoke, Please STOP! Call for help. Follow-up with: Baljit Hale DO [Primary Care Provider] -
== END 2021-04-07 14:15 | disposition home or self-care (01) ==
LOC: ED 17:07 → MS2 20:52
PROVIDERS: ADMIT Internal Medicine; ATTEND Internal Medicine
DX: I13.0 Hypertensive heart and chronic kidney disease with heart failure and stage 1 through stage 4 chronic kidney disease, or unspecified chronic kidney disease (principal); I50.23 Acute on chronic systolic (congestive) heart failure; I35.0 Nonrheumatic aortic (valve) stenosis; G47.33 Obstructive sleep apnea (adult) (pediatric); E11.22 Type 2 diabetes mellitus with diabetic chronic kidney disease; N18.9 Chronic kidney disease, unspecified; I44.7 Left bundle-branch block, unspecified; R01.1 Cardiac murmur, unspecified; Z68.41 Body mass index [BMI] 40.0-44.9, adult; E66.01 Morbid (severe) obesity due to excess calories; Z79.02 Long term (current) use of antithrombotics/antiplatelets; Z20.822 Contact with and (suspected) exposure to COVID-19; Z79.899 Other long term (current) drug therapy; Z95.0 Presence of cardiac pacemaker
CPT/HCPCS: 36415; 71045; 80048; 80053; 81001; 82607; 83036; 83690; 83735; 83880; 84484; 85025; 85027; 87631; 93005; 94761; 96372; 96374; 96375; 96376; 99285; A9270; C8929; G0378; J1650; 0202U; 87086; 93306

== ENCOUNTER 2021-04-29 16:00 | Outpatient (CLI) | payer MEDICARE ==
--- NOTE | 2021-04-29 16:54 | XRAY Report ---
PROCEDURE: Chest 2 View X-Ray INDICATIONS: PLEURAL EFFUSION TECHNIQUE: 2 view(s) of the chest. COMPARISON: April 06, 2015. FINDINGS: SUPPORT DEVICES: Redemonstrated left cardiac device. Interval placement of an aortic valve prosthesis . LUNG/PLEURA: Blunting of the left costophrenic sulci, compatible with pleural fluid. The remaining chele ng zones are well aerated. MEDIASTINUM: Enlargement of the cardiac silhouette, compatible cardiomegaly. BONES/SOFT TISSUES: No acute abnormality. IMPRESSION: 1.Slightly decreased bilateral pleural effusions compared to the prior study. Reviewed by: Nehemias Hagan MD on 04/29/2021 4:53 PM PDT Approved by: Nehemias Hagan MD on 04/29/2021 4:53 PM PDT Station ID: [id number]
== END 2021-04-29 16:01 | disposition home or self-care (01) ==
LOC: DI.N 16:00
PROVIDERS: ATTEND Family Medicine
DX: J90 Pleural effusion, not elsewhere classified (principal)

== ENCOUNTER 2021-05-12 15:56 | Outpatient (CLI) | payer MEDICARE ==
[2021-05-12 16:52] VITALS: BP 132/62
--- NOTE | 2021-05-12 16:52 | SLEEP CARE CONSULTATION ---
Information from patient questionnaire entered by Sunshine Mendoza. I have reviewed and concur with the information entered by Sunshine Mendoza. This document represents the service I personally performed and the decisions made by , Anna Ponce ARNP. History of Present Illness Service Date and Time: 05/12/2021 1556 Previous diagnosis: Severe, Obstructive Sleep Apnea-Hypopnea Syndrome AHI: 39.6 Reason for follow up: annual (Last seen 11/2018) Equipment type: CPAP Equipment obtained from: Juan (haven't gotten any for some time) Mask style: Nasal pillows Year and Where: 2014 and 2018 [facility] additional information: AVERY PANIAGUA was diagnosed to have severe, AHI 39.6, obstructive sleep apnea- hypopnea syndrome and returned today with daughter for CPAP therapy annual follow-up. Patient has not been using her CPAP for at least 2 years because she felt like she was suffocating in the mask. Subjective Missed days of use due to: reports: mask issues, illness Patient concerns: reports: aerophagia, mask discomfort, air blowing in eyes, condensation in mask/hose, nasal congestion, dry mouth, nose, throat. denies: mask leak noise, epistaxis, other Observed to snore while using device: No Current pressure setting perceived as: too low (suffocating) On therapy, patient: reports: other (has not been using it) Initial Tyler Sleepiness Scale score: 3 (in 2014) Current Tyler Sleepiness Scale score: 13 Allergies and Home Medications Drug allergies reviewed: Yes (see list in chart) Home medication list reviewed: Yes Allergy and home medication list: Plavix Clopidagrel Atorvastatin Pantoprazole Sorolacton Furosemide Carvedilol Perdaxa Started on nocturnal oxygen, 1 L NC Review of Systems Review of systems same as previous: No (TAVR procedure on Apr 20, 2021) Physical Exam Blood Pressure: 132/62 (right) Cuff size: wrist Heart Rate: 63 O2 Saturation: 95 Height: 5 ft 9 in Weight: 248 lb Weight change since last visit: 48 pound loss Body Mass Index: 36.6 BMI Classification: Obese Impression and Plan 1. Obstructive Sleep Apnea-Hypopnea Syndrome, severe. Patient has not been using a CPAP for at least 2 years. She is back after a TAVR procedure and being on nocturnal oxygen for hypoxia. She sleeps in her recliner with 1 L NC. Patient's apnea severity and rationale for treatment to reduce apnea, improve sleep quality and reduce cardiovascular and cerebrovascular events was reviewed. I also reviewed the benefit of consistent device use of CPAP for hypertension and arrhythmia. I recommend proceeding to polysomnography to confirm the diagnosis and to assess severity. I obtained agreement to proceed. The pathophysiology of obstructive sleep apnea-hypopnea syndrome was discussed with the patient and health risks of cardiovascular and cerebrovascular disease if not treated. * Schedule polysomnography +- manual CPAP titration study and return in 1-2 weeks after the study to discuss result and initiate therapy. * Avoid long distance driving or driving when feeling sleepy. * Avoid alcohol, sedative and muscle relaxant around bedtime. * Attempt to lose weight. * Review instructions provided by trained office staff on how to prepare for the sleep study. * Return for follow-up after sleep study completed. Counseling Topics: Weight loss health impact Visit Type: In Office Time Spent with Patient (minutes): 28 Provider Statement: I spent 100% of the Face to Face Visit with the patient with greater than 50% spent counseling the patient and coordination of care.
== END 2021-05-12 15:57 | disposition home or self-care (01) ==
LOC: SC 15:56
PROVIDERS: ATTEND Nurse Practitioner Family
DX: G47.33 Obstructive sleep apnea (adult) (pediatric) (principal); E66.9 Obesity, unspecified; Z68.36 Body mass index [BMI] 36.0-36.9, adult
CPT/HCPCS: 99213; G0463; 99212

== ENCOUNTER 2021-06-02 20:42 | Outpatient (CLI) | payer MEDICARE | END 2021-06-02 20:43 | disposition home or self-care (01) | LOC: SC 20:42 | PROVIDERS: ATTEND Nurse Practitioner Family | DX: G47.33 Obstructive sleep apnea (adult) (pediatric) (principal) | CPT/HCPCS: 95810 ==

== ENCOUNTER 2021-06-22 14:29 | Outpatient (CLI) | payer MEDICARE ==
[2021-06-22 15:35] VITALS: BP 132/58
--- NOTE | 2021-06-22 15:35 | SLEEP CARE CONSULTATION ---
Information from patient questionnaire entered by Mauricio Grimm MA. I have reviewed and concur with the information entered by Mauricio Grimm MA. This document represents the service I personally performed and the decisions made by Kris elam Caren J, ARNP. History of Present Illness Service Date and Time: 06/22/2021 1429 Initial Sparks Sleepiness Scale score: 3 (in 2014) Current Sparks Sleepiness Scale score: 2 (in 2020) Additional HPI information: AVERY PANIAGUA returns with daughter for follow up and results of the recently performed polysomnography. I explained the pathophysiology behind obstructive sleep apnea. We then spent quite a bit of time discussing different treatment options. For mild obstructive sleep apnea, surgery and oral appliance are alternatives to nasal CPAP therapy but in moderate or severe cases, nasal CPAP is the most effective and reliable treatment. I reviewed the impact of weight changes on sleep apnea and strongly recommended losing weight. Patient was cautioned about risks of drowsy driving until sleepiness symptoms resolve. Sleep Study - Results Type of Sleep Study: Polysomnography Prior sleep studies: Yes Year and Where: 2014 and 2018 [facility] Polysomnography/Home Sleep Study results: IMPRESSION: The quality of the study is good. The patient had reduced sleep efficiency due to a prolonged awakening in the second half of the night. Despite moderate sleep fragmentation, the sleep architecture was normal. Respiratory monitoring showed moderate obstructive sleep apnea-hypopnea (AHI = 19.4) associated with frequent arousals, oxyhemoglobin desaturation and moderate hypoxia (tracy oxygen saturation of 66%). Baseline oxygen saturation was normal. The respiratory events occurred mainly during REM sleep. The patient only slept supine during this study (supine AHI = 19.4; non-supine = 0.00). Snore was light in intensity. There was no significant periodic leg movement of sleep. Cardiac rhythm was paced. No abnormal behavior (parasomnia) observed during the night. Allergies and Home Medications Home medication list reviewed: Yes (no changes) Review of Systems Review of systems same as previous: Yes (no changes) Physical Exam Vital signs obtained and entered by: Todd VANN Blood Pressure: 132/58 (right ) Cuff size: wrist (PT requests that only use the right arm for BP checks as she broke her left) Heart Rate: 80 O2 Saturation: 92 (with mask) Height: 5 ft 9 in Weight: 248 lb (info from PT skin care technician) Body Mass Index: 36.6 BMI Classification: Obese Impression and Plan 1. Obstructive Sleep Apnea-Hypopnea Syndrome, moderate, with lowest oxygen saturation of 66%. Positive pressure therapy could benefit hypertension and arrhythmia. I explained to patient that she would get the best benefit from CPAP treatment. She has improved from severe obstructive to moderate obstructive sleep apnea. She has lost about 50 pounds and states she will continue to try to lose weight. Patient did use a CPAP in the past and she felt like she was smothering with the mask on and there was lots of condensation in her mask. She was using a nasal pillows mask. She states she sleeps in a recliner, sitting up and she sleeps better without the CPAP. She does not want to restart the CPAP. I reviewed with patient her other options for treatment, including oral appliance, surgery and positional therapy. She did not sleep non-supine so I could not recommend the positional therapy. She did not want to try the other options and she is not a candidate for implantable Inspire device therapy because she has a pacemaker. She is currently on 2L/NC nocturnal oxygen for the last 2 months. Her daughter accompanied her really wants her to treat her EARLE. Patient wants to think about it. I will have her follow up in 1-2 months to see if she has changed her mind or decided upon a treatment option. She is to continue sleeping with her head elevated to help reduce apneas. She is also going to try to lose more weight. * Patient to think about choice of therapy * Continue to try to lose weight. * sleep with head elevated * Return in 1-2 months. Counseling Topics: Weight loss health impact Visit Type: In Office Other Participants: Other (Daughter) Time Spent with Patient (minutes): 29 Provider Statement: I spent 100% of the Face to Face Visit with the patient with greater than 50% spent counseling the patient and coordination of care.
== END 2021-06-22 14:30 | disposition home or self-care (01) ==
LOC: SC 14:29
PROVIDERS: ATTEND Nurse Practitioner Family
DX: G47.33 Obstructive sleep apnea (adult) (pediatric) (principal); E66.9 Obesity, unspecified; Z68.36 Body mass index [BMI] 36.0-36.9, adult
CPT/HCPCS: 99213; G0463; 99212

== ENCOUNTER 2021-12-23 08:06 | Outpatient (CLI) | payer MEDICARE | END 2021-12-23 08:07 | disposition critical access hospital (66) | LOC: EMS 08:06 | DX: S01.81XA Laceration without foreign body of other part of head, initial encounter (principal); W01.198A Fall on same level from slipping, tripping and stumbling with subsequent striking against other object, initial encounter; Y92.000 Kitchen of unspecified non-institutional (private) residence as the place of occurrence of the external cause | CPT/HCPCS: A0425; A0429 ==

== ENCOUNTER → 2022-06-16 | Outpatient (CLI) | payer MEDICARE | END | disposition left against medical advice (07) | LOC: EMS 19:57 | DX: Z03.89 Encounter for observation for other suspected diseases and conditions ruled out (principal); Z79.01 Long term (current) use of anticoagulants ==

== ENCOUNTER 2022-08-03 09:47 | Outpatient (CLI) | payer MEDICARE ==
--- NOTE | 2022-08-03 15:15 | DEXA Report ---
PROCEDURE: Dexa Spine and/or Hip INDICATIONS: POST MENOPAUSAL TECHNIQUE: Dual energy x-ray absorptiometry (DXA) was performed on a [employer]. Regions measur ed are the AP Spine, femoral neck, and if needed forearm. COMPARISON: None. FINDINGS: Lumbar Spine: Bone Mineral Density 1.197 g/cm/cm,T score 0.1, normal Left Femoral Neck: Bone Mineral Density 0.648 g/cm/cm, T score -2.8, osteoporosis Left Hip: Bone Mineral Density 0.714 g/cm/cm,T score -2.3, severe osteopenia (T score greater or equal to -1.0: NORMAL) (T score from -1.1 to -2.4: OSTEOPENIA) (T score less than or equal to -2.5 to: OSTEOPOROSIS) Impression: Osteoporosis within left femoral neck as well as severe osteopenia in the left hip. Patients with diagnosis of osteoporosis or osteopenia should have regular bone mineral density assess ment. For those eligible for Medicare, routine testing is allowed once every 2 years. Testing frequ ency can be increased for patients who have rapidly progressing disease or for those who are receivin g medical therapy to restore bone mass. Reviewed by: Mana Morales MD on 08/03/2022 3:13 PM PST Approved by: Mana Morales MD on 08/03/2022 3:13 PM PST Station ID: [id number]
== END 2022-08-03 09:48 | disposition home or self-care (01) ==
LOC: DI 09:47
PROVIDERS: ATTEND Nurse Practitioner Family
DX: Z78.0 Asymptomatic menopausal state (principal); M81.0 Age-related osteoporosis without current pathological fracture

== ENCOUNTER 2022-08-03 09:48 | Outpatient (CLI) | payer MEDICARE ==
--- NOTE | 2022-08-04 12:17 | Mammography Report ---
BILATERAL DIGITAL SCREENING MAMMOGRAM 3D/2D: 08/03/2022 CLINICAL: Routine screening. Comparison is made to exams dated: 06/17/2015 mammogram, 05/22/2015 mammogram, 09/15/2011 mammogram, and 11/07/2012 mammogram - [facility]. There are scattered areas of fibroglandular density in both breasts (category b / 25%-50% glandular t issue). No significant masses, calcifications, or other findings are seen in either breast. There has been no significant interval change. IMPRESSION: NEGATIVE There is no mammographic evidence of malignancy. A 1 year screening mammogram is recommended. Based on the Tyrer Cuzick model (a risk assessment model) the patients lifetime risk is 2.7% and her 10 year risk is 0.0%. According to the ACR, ACS, and NCCN guidelines, an annual breast MRI exam kirstin g with mammogram is recommended if the patients lifetime risk is 20% or greater. This exam was interpreted at Station ID: [id number]. NOTE: For mammograms, a report in lay terms will be sent to the patient. Approximately 15% of breast malignancies will not be visualized mammographically. In the management of a palpable breast mass, a negative mammogram must not discourage biopsy of a clinically suspicious lesion. Electronically Signed By: Miguel Angel thompson/nestor:08/03/2022 17:15:42 ACR BI-RADS Category 1: Negative 3341F PARENCHYMAL PATTERN: (A) - The breast(s) demonstrate(s) scattered fibroglandular densities. BI-RADS CATEGORY: (1) - 1 RECOMMENDATION: (ANNUAL) - Recommend routine annual screening mammography. [id number] 1 year screening LATERALITY: (B)
== END 2022-08-03 09:49 | disposition home or self-care (01) ==
LOC: DI 09:48
DX: Z12.31 Encounter for screening mammogram for malignant neoplasm of breast (principal)

== ENCOUNTER 2023-04-21 18:47 | Outpatient (CLI) | payer MEDICARE | END 2023-04-21 23:59 | disposition EMS.NT | LOC: EMS 18:47 | DX: Z03.89 Encounter for observation for other suspected diseases and conditions ruled out (principal) ==

== ENCOUNTER 2023-05-31 12:39 | Outpatient (CLI) | payer MEDICARE | END 2023-05-31 12:40 | disposition critical access hospital (66) | LOC: EMS 12:39 | DX: R50.9 Fever, unspecified (principal); M79.89 Other specified soft tissue disorders; F03.90 Unspecified dementia, unspecified severity, without behavioral disturbance, psychotic disturbance, mood disturbance, and anxiety | CPT/HCPCS: A0425; A0429 ==

== ENCOUNTER 2023-05-31 13:06 | Emergency (ER) | payer MEDICARE ==
[2023-05-31 13:26] VITALS: BP 130/60; O2SAT 95
[2023-05-31 13:39] LABS: BASOPHILS % (AUTO) 0.4 %; HCT - HEMATOCRIT 40.2 % (37.0-47.0); HGB - HEMOGLOBIN 13.3 g/dL (12.0-16.0); LYMPHOCYTES # (AUTO) 0.3 10^3/uL (1.5-3.5); LYMPHOCYTES % (AUTO) 2.7 %; MEAN CORPUSCULAR HGB CONC 33.1 g/dL (32.0-36.0); MEAN CORPUSCULAR VOLUME 96.9 fL (81.0-99.0); MEAN PLATELET VOLUME 9.9 fL (7.9-10.8); MONOCYTES # (AUTO) 0.4 10^3/uL (0.0-1.0); MONOCYTES % (AUTO) 3.9 %; NEUTROPHILS # (AUTO) 8.8 10^3/uL (1.5-6.6); NEUTROPHILS % (AUTO) 92.7 %; PLT - PLATELET COUNT 99 10^3/uL (130-450); RED BLOOD COUNT 4.15 10^6/uL (4.20-5.40); RED CELL DISTRIBUTION WIDTH 12.4 % (12.0-15.0); WHITE BLOOD COUNT 9.5 x10^3/uL (4.8-10.8)
[2023-05-31 13:49] LABS: ALBUMIN/GLOBULIN RATIO 1.5 (1.0-2.2); BILIRUBIN,TOTAL 1.7 mg/dL (0.2-1.0); CALCIUM 9.3 mg/dL (8.5-10.3); CREATININE 1.5 mg/dL (0.6-1.3); POTASSIUM 3.8 mmol/L (3.5-4.5); TOTAL PROTEIN 6.7 g/dL (6.4-8.9)
[2023-05-31 15:04] LABS: B. PARAPERTUSSIS- RESP PCR PAN NOT DETECTED; B. PERTUSSIS- RESP PCR PANEL NOT DETECTED; C. PNEUMONIAE- RESP PCR PANEL NOT DETECTED; CORONAVIRUS 229E-RESP PCR NOT DETECTED; CORONAVIRUS HKU1-RESP PCR NOT DETECTED; CORONAVIRUS NL63-RESP PCR NOT DETECTED; CORONAVIRUS OC43-RESP PCR NOT DETECTED; HUMAN METAPNEUMOVIRUS NOT DETECTED; INFLUENZA A- RESP PCR PANEL NOT DETECTED; INFLUENZA B - RESP PCR PANEL NOT DETECTED; M. PNEUMONIAE- RESP PCR PANEL NOT DETECTED; PARAINFLUENZA VIRUS 1 NOT DETECTED; PARAINFLUENZA VIRUS 2 NOT DETECTED; PARAINFLUENZA VIRUS 3 NOT DETECTED; PARAINFLUENZA VIRUS 4 NOT DETECTED; RHINOVIRUS/ENTEROVIRUS NOT DETECTED; RSV- RESP PCR PANEL NOT DETECTED; SARS-CoV-2 -RESP PCR PANEL NOT DETECTED
[2023-05-31 16:39] LABS: BILIRUBIN,URINE NEGATIVE (NEGATIVE); GLUCOSE, URINE (UA) NEGATIVE (NEGATIVE); KETONES,URINE (UA) NEGATIVE (NEGATIVE); LEUKOCYTE ESTERASE, URINE NEGATIVE (NEGATIVE); NITRITE,URINE NEGATIVE (NEGATIVE); OCCULT BLOOD,URINE NEGATIVE (NEGATIVE); PH,URINE 5.5 PH (5.0-7.5); PROTEIN,URINE NEGATIVE (NEGATIVE); UROBILINOGEN,URINE 0.2 (NORMAL) E.U./dL (NORMAL)
[2023-05-31 16:44] LABS: CLARITY,URINE CLEAR (CLEAR)
--- NOTE | 2023-05-31 16:49 | ED Physician Documentation ---
History of Present Illness - Stated complaint Stated Complaint: ARM SWELLING - Chief complaint Chief Complaint: General - History obtained from History obtained from: Patient, Family, EMS - Additonal information Additional information: The patient is sent to the emergency department by her daughter for chief complaint of "not acting like her usual self". The patient has seemed a little more confused than her usual dementia confusion. Otherwise, the patient has been more or less herself per daughter and the patient herself has no complaints. Daughter states that the patient has previously had issues with UTIs and she is wondering if perhaps the patient has one again. She has not had any fevers or chills at home per daughter. No vomiting or diarrhea. 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 : None HEENT: None Psych: None Musculoskeletal: Osteoarthritis Derm: None - Past Surgical History Past Surgical History: Yes General: Cholecystectomy Cardiovascular: Pacemaker - Present Medications Home Medications: Ambulatory Orders Medication Instructions Recorded Confirmed Hydralazine HCl 10 mg PO BID 12/21/12 04/07/21 Potassium Chloride [Klor-Con M20] 20 meq PO BIDAC 12/21/12 04/07/21 Atorvastatin [Lipitor] 40 mg PO QPM 04/07/21 04/07/21 Dabigatran [Pradaxa] 150 mg PO BID 04/07/21 04/07/21 Furosemide [Lasix] 40 mg PO DAILY 04/07/21 04/07/21 Metoprolol Tartrate [Lopressor] 12.5 mg PO BID 04/07/21 04/07/21 Multivitamin 1 tab PO DAILY 04/07/21 04/07/21 Nitroglycerin [Nitrostat] 0.4 mg SL PRN PRN 04/07/21 04/07/21 Potassium Citrate [Potassium 15 meq PO BID 04/07/21 04/07/21 Citrate ER] - Allergies Allergies/Adverse Reactions: Allergies Allergy/AdvReac Type Severity Reaction Status Date / Time codeine Allergy Intermediate Nausea Verified 05/31/23 13:22 aspirin Allergy Unknown Verified 05/31/23 13:22 egg Allergy Cramps Verified 05/31/23 13:22 metoprolol Allergy Unknown Verified 05/31/23 13:22 morphine Allergy Unknown Verified 05/31/23 13:22 simvastatin [From Zocor] Allergy Unknown Verified 05/31/23 13:22 Sulfa (Sulfonamide Allergy Unknown Verified 05/31/23 13:22 Antibiotics) hydrocodone bitartrate * AdvReac Intermediate Nausea Verified 05/31/23 13:22 [From Vicodin] oxycodone HCl * AdvReac Intermediate Nausea Verified 05/31/23 13:22 [From Percocet] acetaminophen [From Tylenol] AdvReac Mild Nausea Verified 05/31/23 13:22 latex AdvReac Rash Verified 05/31/23 13:22 - Social History Does the pt smoke?: No Smoking Status: Never smoker Does the pt drink ETOH?: No Does the pt have substance abuse?: No - Immunizations Immunizations are current?: Yes - POLST Patient has POLST: No PD ED PE NORMAL - Vitals Vital signs reviewed: Yes - General General: No acute distress, Well developed/nourished, Other (Alert, answers questions appropriately.) - HEENT HEENT: Atraumatic, PERRL, EOMI, Moist mucous membranes - Neck Neck: Supple, no meningeal sign - Cardiac Cardiac: RRR, No murmur - Respiratory Respiratory: No respiratory distress, Clear bilaterally - Abdomen Abdomen: Soft, Non tender, Non distended - Derm Derm: Normal color, Warm and dry, No rash - Extremities Extremities: No deformity, Other - Neuro Neuro: Other (Alert, oriented to self and that she is in the ED. No gross deficits otherwise.) - Psych Psych: Normal mood, Normal affect Results - Vitals Vitals: Oxygen O2 Source Room air - Labs Labs: Laboratory Tests 05/31/23 05/31/23 05/31/23 13:30 13:30 13:45 WBC 9.5 RBC 4.15 L Hgb 13.3 Hct 40.2 MCV 96.9 MCH 32.0 H MCHC 33.1 RDW 12.4 Plt Count 99 L MPV 9.9 Neut # (Auto) 8.8 H Lymph # (Auto) 0.3 L [place] # (Auto) 0.4 Eos # (Auto) 0.0 Baso # (Auto) 0.0 Absolute Nucleated RBC 0.00 Nucleated RBC % 0.0 Sodium 139 Potassium 3.8 Chloride 103 Carbon Dioxide 26 Anion Gap 10.0 BUN 45 H Creatinine 1.5 H Estimated GFR (MDRD) 33 L Glucose 182 H Calcium 9.3 Total Bilirubin 1.7 H AST 25 ALT 11 Alkaline Phosphatase 79 Total Protein 6.7 Albumin 4.0 Globulin 2.7 Albumin/Globulin Ratio 1.5 Lipase 16 Urine Color Urine Clarity Urine pH Ur Specific [place] Urine Protein Urine Glucose (UA) Urine Ketones Urine Occult Blood Urine Nitrite Urine Bilirubin Urine Urobilinogen Ur Leukocyte Esterase Ur Microscopic Review Urine Culture Comments Nasal Adenovirus (PCR) NOT DETECTED Nasal B. parapertussis DNA (PCR) NOT DETECTED Nasal Coronavir 229E PCR NOT DETECTED Nasal Coronavir HKU1 PCR NOT DETECTED Nasal Coronavir NL63 PCR NOT DETECTED Nasal Coronavir OC43 PCR NOT DETECTED Nasal Enterovir/Rhinovir PCR NOT DETECTED Nasal Influenza B PCR NOT DETECTED Nasal Influenza A PCR NOT DETECTED Nasal Parainfluen 1 PCR NOT DETECTED Nasal Parainfluen 2 PCR NOT DETECTED Nasal Parainfluen 3 PCR NOT DETECTED Nasal Parainfluen 4 PCR NOT DETECTED Nasal RSV (PCR) NOT DETECTED Nasal B.pertussis DNA PCR NOT DETECTED Nasal C.pneumoniae (PCR) NOT DETECTED Julián Human Metapneumo PCR NOT DETECTED Nasal M.pneumoniae (PCR) NOT DETECTED Nasal SARS-CoV-2 (PCR) NOT DETECTED 05/31/23 16:22 WBC RBC Hgb Hct MCV MCH MCHC RDW Plt Count MPV Neut # (Auto) Lymph # (Auto) [place] # (Auto) Eos # (Auto) Baso # (Auto) Absolute Nucleated RBC Nucleated RBC % Sodium Potassium Chloride Carbon Dioxide Anion Gap BUN Creatinine Estimated GFR (MDRD) Glucose Calcium Total Bilirubin AST ALT Alkaline Phosphatase Total Protein Albumin Globulin Albumin/Globulin Ratio Lipase Urine Color YELLOW Urine Clarity CLEAR Urine pH 5.5 Ur Specific [place] 1.025 Urine Protein NEGATIVE Urine Glucose (UA) NEGATIVE Urine Ketones NEGATIVE Urine Occult Blood NEGATIVE Urine Nitrite NEGATIVE Urine Bilirubin NEGATIVE Urine Urobilinogen 0.2 (NORMAL) Ur Leukocyte Esterase NEGATIVE Ur Microscopic Review NOT INDICATED Urine Culture Comments NOT INDICATED Nasal Adenovirus (PCR) Nasal B. parapertussis DNA (PCR) Nasal Coronavir 229E PCR Nasal Coronavir HKU1 PCR Nasal Coronavir NL63 PCR Nasal Coronavir OC43 PCR Nasal Enterovir/Rhinovir PCR Nasal Influenza B PCR Nasal Influenza A PCR Nasal Parainfluen 1 PCR Nasal Parainfluen 2 PCR Nasal Parainfluen 3 PCR Nasal Parainfluen 4 PCR Nasal RSV (PCR) Nasal B.pertussis DNA PCR Nasal C.pneumoniae (PCR) Julián Human Metapneumo PCR Nasal M.pneumoniae (PCR) Nasal SARS-CoV-2 (PCR) PD Medical Decision Making - ED course Complexity details: reviewed results, re-evaluated patient, considered differential, d/w patient, d/w family ED course: The patient was evaluated in the emergency department with laboratory studies and urinalysis, as well as respiratory PCR panel. The patient's white blood cell count and H&H were normal. Her abdominal panel showed a creatinine of 1.5 which is within the patient's baseline range. Her urinalysis was completely negative, as was her viral panel. I discussed with the patient's daughter and the patient that she does not have a UTI, nor does she have any other significant abnormalities beyond her baseline to explain the increasing confusion. The patient is quite bright and alert in the ED and conversing vigorously with her daughter. She has no complaints at this point in time, I feel she is stable for discharge home. We have discussed home management of the symptoms, as well as the usual indications for return. Departure - Departure Disposition: 01 Home, Self Care Clinical Impression: Altered mental status Qualifiers: Altered mental status type: unspecified Qualified Code(s): R41.82 - Altered mental status, unspecified Dementia Qualifiers: Dementia type: unspecified type Dementia severity: moderate Dementia behavioral or psychological symptom: without behavioral, psychotic, or mood disturbance or anxiety Qualified Code(s): F03.B0 - Unspecified dementia, moderate, without behavioral disturbance, psychotic disturbance, mood disturbance, and anxiety Condition: Stable Instructions: ED Confusion Comments: Your laboratory studies look good and your urinalysis is completely normal. You have been given fluids to drink by large volume in the emergency department and there is no evidence of a more serious condition at this time. Your vital signs have been stable and you are stable for discharge home. Please follow-up with your primary care physician for further concerns. Forms: PCP List Discharge Date/Time: 05/31/23 17:21
== END 2023-05-31 17:21 | disposition home or self-care (01) ==
LOC: EDBD → EDUNIT# → ED 13:06
DX: R41.82 Altered mental status, unspecified (principal); F03.B0 Unspecified dementia, moderate, without behavioral disturbance, psychotic disturbance, mood disturbance, and anxiety; I10 Essential (primary) hypertension; E11.9 Type 2 diabetes mellitus without complications; Z11.52 Encounter for screening for COVID-19; Z79.899 Other long term (current) drug therapy
CPT/HCPCS: 36415; 80053; 81001; 81003; 83690; 85025; 87086; 87633; 99283

== ENCOUNTER 2023-06-01 16:07 | Outpatient (CLI) | payer MEDICARE | END 2023-06-01 16:08 | disposition short-term general hospital (02) | LOC: EMS 16:07 | DX: R53.1 Weakness (principal); J34.89 Other specified disorders of nose and nasal sinuses | CPT/HCPCS: A0425; A0429 ==

== ENCOUNTER 2023-08-07 09:49 | Outpatient (CLI) | payer MEDICARE ==
[2023-08-07 10:18] LABS: BASOPHILS % (AUTO) 0.5 %; EOSINOPHILS # (AUTO) 0.1 10^3/uL (0.0-0.7); EOSINOPHILS % (AUTO) 1.2 %; HCT - HEMATOCRIT 37.4 % (37.0-47.0); HGB - HEMOGLOBIN 12.6 g/dL (12.0-16.0); LYMPHOCYTES # (AUTO) 0.6 10^3/uL (1.5-3.5); LYMPHOCYTES % (AUTO) 10.2 %; MEAN CORPUSCULAR HEMOGLOBIN 32.2 pg (27.0-31.0); MEAN CORPUSCULAR HGB CONC 33.7 g/dL (32.0-36.0); MEAN CORPUSCULAR VOLUME 95.7 fL (81.0-99.0); MEAN PLATELET VOLUME 10.4 fL (7.9-10.8); MONOCYTES # (AUTO) 0.5 10^3/uL (0.0-1.0); MONOCYTES % (AUTO) 9.5 %; NEUTROPHILS # (AUTO) 4.5 10^3/uL (1.5-6.6); NEUTROPHILS % (AUTO) 78.4 %; PLT - PLATELET COUNT 81 10^3/uL (130-450); RED BLOOD COUNT 3.91 10^6/uL (4.20-5.40); RED CELL DISTRIBUTION WIDTH 13.2 % (12.0-15.0); WHITE BLOOD COUNT 5.7 x10^3/uL (4.8-10.8)
[2023-08-07 10:25] LABS: ALBUMIN 3.4 g/dL (3.2-5.5); ALBUMIN/GLOBULIN RATIO 1.3 (1.0-2.2); BILIRUBIN,TOTAL 1.1 mg/dL (0.2-1.0); CALCIUM 8.8 mg/dL (8.5-10.3); POTASSIUM 3.9 mmol/L (3.5-4.5); TOTAL PROTEIN 6.1 g/dL (6.4-8.9)
--- NOTE | 2023-08-07 20:05 | XRAY Report ---
PROCEDURE: Neck Soft Tissue INDICATIONS: JAW PAIN, SUBMANDIBULAR LYMPH NODE TECHNIQUE: 2 views of the neck were acquired. COMPARISON: None FINDINGS: Airway: The airway appears patent. Soft tissues: Prevertebral soft tissues are normal in thickness. The epiglottis and aryepiglottic f olds appear normal. No soft tissue gas. Bones: No suspicious bony lesions. Visualized cervical spine is normally aligned. Degenerative dis c disease noted in the mid cervical spine results in straightening of normal cervical lordosis IMPRESSION: Degenerative cervical spine changes Reviewed by: Lasha Mirza MD on 08/07/2023 7:04 PM [place] Approved by: Lasha Mirza MD on 08/07/2023 7:04 PM [place] Station ID: [id number]
--- NOTE | 2023-08-07 20:06 | XRAY Report ---
PROCEDURE: Facial Bones 1-2V INDICATIONS: JAW PAIN, SUBMANDIBULAR LYMPH NODE TECHNIQUE: 3 views of the facial bones were acquired. COMPARISON: None FINDINGS: Sinuses: Visualized sinuses demonstrate no air-fluid levels or mucosal thickening. Bones: No fractures. No suspicious bony lesions. Orbital rims and zygomatic arches appear intact. Soft tissues: No suspicious soft tissue densities. IMPRESSION: Unremarkable facial bone radiographs Reviewed by: Lasha Mirza MD on 08/07/2023 7:05 PM [place] Approved by: Lasha Mirza MD on 08/07/2023 7:05 PM AKST Station ID: [id number]
--- NOTE | 2023-08-07 20:08 | XRAY Report ---
PROCEDURE: Mandible 4+V BL INDICATIONS: JAW PAIN, SUBMANDIBULAR LYMPH NODE TECHNIQUE: 6 views of the mandible were acquired. COMPARISON: None FINDINGS: Bones: No fractures or dislocations. No suspicious bony lesions. Soft tissues: Visualized sinuses appear clear. No suspicious soft tissue densities. IMPRESSION: Unremarkable mandibular radiographs Reviewed by: Lasha Mirza MD on 08/07/2023 7:06 PM AKST Approved by: Lasha Mirza MD on 08/07/2023 7:06 PM AKST Station ID: [id number]
== END 2023-08-07 09:50 | disposition home or self-care (01) ==
LOC: LAB 09:49 → DI 09:50
PROVIDERS: ATTEND Physician Assistant
DX: M50.30 Other cervical disc degeneration, unspecified cervical region (principal); I10 Essential (primary) hypertension; A41.9 Sepsis, unspecified organism; R68.84 Jaw pain
CPT/HCPCS: 36415; 80053; 85025; 86140

== ENCOUNTER 2023-08-30 15:22 | Outpatient (CLI) | payer MEDICARE ==
[2023-08-30 15:36] LABS: BASOPHILS # (AUTO) 0.1 10^3/uL (0.0-0.1); BASOPHILS % (AUTO) 0.7 %; EOSINOPHILS # (AUTO) 0.1 10^3/uL (0.0-0.7); EOSINOPHILS % (AUTO) 1.6 %; HCT - HEMATOCRIT 40.8 % (37.0-47.0); LYMPHOCYTES % (AUTO) 14.8 %; MEAN CORPUSCULAR HEMOGLOBIN 31.3 pg (27.0-31.0); MEAN CORPUSCULAR HGB CONC 31.9 g/dL (32.0-36.0); MEAN CORPUSCULAR VOLUME 98.1 fL (81.0-99.0); MEAN PLATELET VOLUME 10.3 fL (7.9-10.8); MONOCYTES # (AUTO) 0.7 10^3/uL (0.0-1.0); MONOCYTES % (AUTO) 9.5 %; NEUTROPHILS % (AUTO) 73.1 %; PLT - PLATELET COUNT 110 10^3/uL (130-450); RED BLOOD COUNT 4.16 10^6/uL (4.20-5.40); RED CELL DISTRIBUTION WIDTH 14.2 % (12.0-15.0); WHITE BLOOD COUNT 6.8 x10^3/uL (4.8-10.8)
== END 2023-08-30 15:23 | disposition home or self-care (01) ==
LOC: LAB 15:22
PROVIDERS: ATTEND Physician Assistant
DX: M10.9 Gout, unspecified (principal); D69.6 Thrombocytopenia, unspecified
CPT/HCPCS: 36415; 84550; 85025

== ENCOUNTER 2023-10-01 20:18 | Outpatient (CLI) | payer MEDICARE | END 2023-10-01 20:19 | disposition EMS.NT | LOC: EMS 20:18 | DX: R53.1 Weakness (principal); R50.9 Fever, unspecified ==

== ENCOUNTER 2023-10-30 16:16 | Outpatient (CLI) | payer MEDICARE ==
[2023-10-30 16:29] LABS: BASOPHILS % (AUTO) 0.9 %; EOSINOPHILS # (AUTO) 0.2 10^3/uL (0.0-0.7); EOSINOPHILS % (AUTO) 4.7 %; HCT - HEMATOCRIT 35.3 % (37.0-47.0); HGB - HEMOGLOBIN 11.2 g/dL (12.0-16.0); LYMPHOCYTES # (AUTO) 0.8 10^3/uL (1.5-3.5); LYMPHOCYTES % (AUTO) 18.7 %; MEAN CORPUSCULAR HEMOGLOBIN 32.5 pg (27.0-31.0); MEAN CORPUSCULAR HGB CONC 31.7 g/dL (32.0-36.0); MEAN CORPUSCULAR VOLUME 102.3 fL (81.0-99.0); MEAN PLATELET VOLUME 9.6 fL (7.9-10.8); MONOCYTES # (AUTO) 0.4 10^3/uL (0.0-1.0); NEUTROPHILS # (AUTO) 2.8 10^3/uL (1.5-6.6); NEUTROPHILS % (AUTO) 66.5 %; PLT - PLATELET COUNT 149 10^3/uL (130-450); RED BLOOD COUNT 3.45 10^6/uL (4.20-5.40); RED CELL DISTRIBUTION WIDTH 17.1 % (12.0-15.0); WHITE BLOOD COUNT 4.2 x10^3/uL (4.8-10.8)
[2023-10-30 16:42] LABS: CALCIUM 9.5 mg/dL (8.5-10.3); POTASSIUM 3.5 mmol/L (3.5-4.5)
== END 2023-10-30 16:17 | disposition home or self-care (01) ==
LOC: LAB 16:16
PROVIDERS: ATTEND Family Medicine
DX: I10 Essential (primary) hypertension (principal)
CPT/HCPCS: 36415; 80048; 85025

== ENCOUNTER 2025-05-23 09:16 | Inpatient (IN) ==
--- OUTSIDE RECORDS SUMMARY | 2025-05-23 09:26 | EXTERNAL MEDICAL SUMMARY RPT | Continuity of Care Document ---
Author Organization [place] Address [address] [facility] [address] [place] [address] Phone Care Team Providers Care Addictions Recovery Specialist Name Role Phone Unavailable Unavailable Unavailable Elizabeth Dasilva Unavailable Unavailable Allergies and Intolerances date description facility reaction severity 2025-05-17 16:36:54 [facility] (no reactio n) (no severity) 2025-05-17 17:36:54 [facility] (no reactio n) (no severity) 2025-05-17 16:36:54 [facility] (no reactio n) Mild 2025-05-17 17:36:54 [facility] (no reactio n) Mild 2025-05-17 16:36:54 [facility] (no reactio n) Severe 2025-05-17 17:36:54 [facility] (no reactio n) Severe 2025-05-17 16:36:54 [facility] (no reactio n) Severe 2025-05-17 17:36:54 [facility] (no reactio n) Severe 2025-05-17 16:36:54 [facility] (no reactio n) Severe 2025-05-17 17:36:54 [facility] (no reactio n) Severe 2025-05-17 16:36:54 [facility] (no reactio n) Severe 2025-05-17 17:36:54 [facility] (no reactio n) Severe 2025-05-17 16:36:54 [facility] (no reactio n) Severe 2025-05-17 17:36:54 [facility] (no reactio n) Severe Medications date description facility 2025-05-16 00:00 [facility] 2025-05-19 [facility]:00 [facility] 2025-05-16 00:00 Amoxicillin [facility] 2025-05-16 00:00 [facility] 2025-05-16 00:00 Spironolactone [facility] 2025-05-16 00:00 Mirtazapine [facility] 2025-05-16 00:00 Carvedilol [facility] 2025-05-16 00:00 Memantine [facility] 2025-05-16 00:00 Donepezil [facility] Problems date description facility 2025-03-14 09:33 Other specified disorders of ki dney and ureter [facility] 2025-03-14 09:33 Urinary tract infection, site n ot specified [facility] 2025-03-14 09:33 Personal history of urinary benja culi [facility] 2025-04-18 08:30 Unspecified dementia , unspecified severity, with psychotic disturbance [facility] 2025-04-21 10:24 Unspecified dementia , unspecified severity, with psychotic disturbance [facility] 2025-04-21 10:35 Unspecified dementia , unspecified severity, with psychotic disturbance [facility] 2025-04-21 10:40 Unspecified dementia , unspecified severity, with psychotic disturbance [facility] 2025-04-21 11:25 Unspecified dementia , unspecified severity, with psychotic disturbance [facility] 2025-04-21 11:25 Cystitis, unspecified without h ematuria [facility] 2025-05-17 00:00 Urinary tract infection [facility] 2025-05-17 00:00 Acute alteration in mental stat [facility] 2025-05-19 15:31 Urinary tract infection, site n ot specified [facility] 2025-05-19 15:31 Altered mental status, unspecif [facility] 2025-05-20 10:19 Urinary tract infection, site n ot specified [facility] 2025-05-20 10:19 Altered mental status, unspecif [facility] Procedures date description facility 2025-05-17 00:00 Computed tomography of abdomen and pelvis without contrast [facility] 2025-05-17 00:00 Blood culture [facility] 2025-05-17 00:00 X-ray of chest, single [facility] Results/Labs test date facility value unit notes Result panel 1 Urine bilirubin measurement 2025-05-17 17:51:08 [facility] Negative (missing) (miss ing) Result panel 2 Urine urobilinogen detection 2025-05-17 17:51:08 [facility] 1.0 E.U./dL (miss ing) Result panel 3 Urine leukocyte esterase detection 2025-05-17 17:51:08 [facility] 2+ (missing) (miss ing) Result panel 4 Microscopic analysis of urine for red blood cells (RBC) 2025-05-17 17:51:08 [facility] None seen (missing) (missing) Result panel 5 Microscopic analysis of urine for white blood cells (WBC) 2025-05-17 17:51:08 [facility] 10-30/hpf (missing) (missing) Result panel 6 Urine squamous epithelial cell detection 2025-05-17 17:51:08 [facility] None seen (missing) (miss ing) Result panel 7 Urine color determination 2025-05-17 17:51:08 [facility] Yellow (missing) (mis sing) Result panel 8 Urine appearance 2025-05-17 17:51:08 [facility] Clear (missing) (missing) Result panel 9 Urine pH measurement 2025-05-17 17:51:08 [facility] 7.5 (missing) (missing) Result panel 10 Urine specific gravity measurement 2025-05-17 17:51:08 [facility] 1.015 (missing) (miss ing) Result panel 11 Urine protein measurement 2025-05-17 17:51:08 [facility] Negative (missing) (miss ing) Result panel 12 Urine glucose measurement 2025-05-17 17:51:08 [facility] Negative g/dL (missing) (missing) Result panel 13 Urine ketones measurement 2025-05-17 17:51:08 [facility] Negative (missing) (miss ing) Result panel 14 Urine occult blood detection 2025-05-17 17:51:08 [facility] 1+ (missing) (miss ing) Result panel 15 Urine nitrate measurement 2025-05-17 17:51:08 [facility] Positive (missing) (miss ing) Result panel 16 Troponin I.cardiac [Mass/volume] in Serum or Plasma 2025-05-17 18:05:08 [facility] < 0.012 ng/mL (missing) (missing) Result panel 17 Natriuretic peptide.B prohormone N-Terminal [Mass/volume] in Serum or Plasma 2025-05-17 18:05:08 [facility] 1820 pg/mL (miss ing) Result panel 18 Lactate [Mass/volume] in Serum or Plasma 2025-05-17 18:05:08 [facility] 0.6 mmol/L ([facility]) Result panel 19 Magnesium [Mass/volume] in Serum or Plasma 2025-05-17 18:05:08 [facility] 2.3 mg/dL ([facility]) Result panel 20 Bilirubin.total [Mass/volume ] in Serum or Plasma 2025-05-17 18:05:08 [facility] 0.8 mg/dL (missing) Result panel 21 Aspartate aminotransferase [Enzymatic activity/volume] in Serum or Plasma 2025-05-17 18:05:08 [facility] 24 IU/L ([facility]) Result panel 22 Alanine aminotransferase [Enzymatic activity/volume] in Serum or Plasma 2025-05-17 18:05:08 [facility] 14 IU/L ([facility]) Result panel 23 Alkaline phosphatase [Enzyma tic activity/volume] in Serum or Plasma 2025-05-17 18:05:08 [facility] 91 U/L ([facility]) Result panel 24 Protein total ser/plas 2025-05-17 18:05:08 [facility] 6 .5 g/dL (missing) Result panel 25 Albumin [Mass/volume] in Ser um or Plasma 2025-05-17 18:05:08 [facility] 3.8 g/dL ([facility] ing) Result panel 26 Globulin [Mass/volume] in Serum by calculation 2025-05-17 18:05:08 [facility] 2.7 g/dL (missing) Result panel 27 Albumin/Globulin [Mass Ratio] in Serum or Plasma 2025-05-17 18:05:08 [facility] 1.4 ([facility]) (missing) Result panel 28 Lipase [Enzymatic activity/volume] in Serum or Plasma 2025-05-17 18:05:08 [facility] 171 U/L ([facility] ing) Result panel 29 Procalcitonin [Mass/volume] in Serum or Plasma 2025-05-17 18:05:08 [facility] 0.065 ng/mL (missing) Result panel 30 Serum or plasma creatine kinase MB measurement (mass/volume) 2025-05-17 18:05:08 [facility] 1.6 ng/mL (mis sing) Result panel 31 Urine color determination 2025-05-17 18:51:07 [facility] Yellow (missing) (mis sing) Result panel 32 Urine appearance 2025-05-17 18:51:07 [facility] Clear (missing) (missing) Result panel 33 Urine pH measurement 2025-05-17 18:51:07 [facility] 7.5 (missing) (missing) Result panel 34 Urine specific gravity measurement 2025-05-17 18:51:07 [facility] 1.015 (missing) (miss ing) Result panel 35 Urine protein measurement 2025-05-17 18:51:07 [facility] Negative (missing) (miss ing) Result panel 36 Urine glucose measurement 2025-05-17 18:51:07 [facility] Negative g/dL (missing) (missing) Result panel 37 Urine ketones measurement 2025-05-17 18:51:07 [facility] Negative (missing) (miss ing) Result panel 38 Urine occult blood detection 2025-05-17 18:51:07 [facility] 1+ (missing) (miss ing) Result panel 39 Urine nitrate measurement 2025-05-17 18:51:07 [facility] Positive (missing) (miss ing) Result panel 40 Urine bilirubin measurement 2025-05-17 18:51:07 [facility] Negative (missing) (miss ing) Result panel 41 Urine urobilinogen detection 2025-05-17 18:51:07 [facility] 1.0 E.U./dL (miss ing) Result panel 42 Urine leukocyte esterase detection 2025-05-17 18:51:07 [facility] 2+ (missing) (miss ing) Result panel 43 Microscopic analysis of urine for red blood cells (RBC) 2025-05-17 18:51:07 [facility] None seen (missing) (missing) Result panel 44 Microscopic analysis of urine for white blood cells (WBC) 2025-05-17 18:51:07 [facility] 10-30/hpf (missing) (missing) Result panel 45 Urine squamous epithelial cell detection 2025-05-17 18:51:07 [facility] None seen (missing) (miss ing) Result panel 46 Occult Blood Urine UA 2025-05-17 19:04 [facility] 1 (missing) (missing) Urobilinogen Urine UA 2025-05-17 19:04 [facility] 1.0 e.u./dl (missing) Specific [place] Urine UA 2025-05-17 19:04 [facility] 1.015 (missing) (missing) Leukocyte Esterase Urine UA 2025-05-17 19:04 [facility] 2 (missing) (missing) pH Urine UA 2025-05-17 19:04 [facility] 7.5 (missing) (missing) Appearance Urine UA 2025-05-17 19:04 [facility] CLEAR (missing) (missing) Bilirubin Urine UA 2025-05-17 19:04 [facility] NEGATIVE (missing) (missing) Ketones Urine UA 2025-05-17 19:04 [facility] NEGATIVE (missing) (missing) Protein Urine UA 2025-05-17 19:04 [facility] NEGATIVE (missing) (missing) Glucose Urine UA 2025-05-17 19:04 [facility] NEGATIVE g/dl (missing) Nitrite Urine UA 2025-05-17 19:04 [facility] POSITIVE (missing) (missing) Color Urine UA 2025-05-17 19:04 [facility] YELLOW (missing) Urine Source: Urine, Catheterized Culture if Indicated? Y Result panel 47 White blood cell count 2025-05-17 19:05:07 [facility] 5 .2 X10^3/uL (missing) Result panel 48 Automated neutrophil % 2025-05-17 19:05:07 [facility] 6 9.6 % (missing) Result panel 49 Automated lymphocyte % 2025-05-17 19:05:07 [facility] 1 9.1 % (missing) Result panel 50 Automated monocyte % 2025-05-17 19:05:07 [facility] 7.0 % (missing) Result panel 51 Automated eosinophil % 2025-05-17 19:05:07 [facility] 3 .6 % (missing) Result panel 52 Automated basophil % 2025-05-17 19:05:07 [facility] 0.7 % (missing) Result panel 53 Absolute neutrophil count 2025-05-17 19:05:07 [facility] l 3600 /uL (missing) Result panel 54 Absolute lymphocyte count 2025-05-17 [facility]:05[facility] Result panel 55 Automated blood monocyte count 2025-05-17 19:05:07 [facility] spital 400 /uL (missing) Result panel 56 Automated eosinophil count 2025-05-17 19:05[facility] ([facility]) Result panel 57 Automated basophil count 2025-05-17 19:05:07 [facility] 0 /uL (missing) Result panel 58 Red blood cell count 2025-05-17 19:05:07 [facility] 3.8 3 X10^6/uL (missing) Result panel 59 Hemoglobin 2025-05-17 19:05:07 [facility] 12.9 g/d L (missing) Result panel 60 Troponin I.cardiac [Mass/volume] in Serum or Plasma 2025-05-17 19:05:07 [facility] < 0.012 ng/mL (missing) (missing) Result panel 61 Natriuretic peptide.B prohormone N-Terminal [Mass/volume] in Serum or Plasma 2025-05-17 19:05:07 [facility] 1820 pg/mL ([facility]) Result panel 62 Sodium [Moles/volume] in Serum or Plasma 2025-05-17 19:05:07 [facility] 133 mmol/L ([facility]) Result panel 63 Potassium [Moles/volume] in Serum or Plasma 2025-05-17 19:05:07 [facility] 5.0 mmol/L ([facility]) Result panel 64 Chloride [Moles/volume] in Serum or Plasma 2025-05-17 19:05:07 [facility] 101 mmol/L ([facility]) Result panel 65 Hematocrit 2025-05-17 19:05:07 [facility] 36.4 % (missing) Result panel 66 Carbon dioxide, total [Moles/volume] in Serum or Plasma 2025-05-17 19:05:07 [facility] 27 mmol/L ([facility]) Result panel 67 Urea nitrogen [Mass/volume] in Serum or Plasma 2025-05-17 19:05:07 [facility] 25 mg/dL ([facility]) Result panel 68 Creatinine [Mass/volume] in Serum or Plasma 2025-05-17 19:05:07 [facility] 0.99 mg/dL ([facility]) Result panel 69 Glomerular filtration rate (GFR) estimation 2025-05-17 19:05:07 [facility] 57 mL/min ( missing) Result panel 70 BUN/creatinine ratio 2025-05-17 19:05:07 [facility] 25. 3 (missing) (missing) Result panel 71 Glucose [Mass/volume] in Ser um or Plasma 2025-05-17 19:05:07 [facility] 90 mg/dL ([facility] ing) Result panel 72 Lactate [Mass/volume] in Serum or Plasma 2025-05-17 19:05:07 [facility] 0.6 mmol/L ( issing) Result panel 73 Calcium [Mass/volume] in Serum or Plasma 2025-05-17 19:05:07 [facility] 9.1 mg/dL ( issing) Result panel 74 Magnesium [Mass/volume] in Serum or Plasma 2025-05-17 19:05:07 [facility] 2.3 mg/dL ( issing) Result panel 75 Bilirubin.total [Mass/volume ] in Serum or Plasma 2025-05-17 19:05:07 [facility] 0.8 mg/dL (missing) Result panel 76 MCV (mean corpuscular volume ) determination 2025-05-17 19:05:07 [facility] 95.1 fL (mis sing) Result panel 77 Aspartate aminotransferase [Enzymatic activity/volume] in Serum or Plasma 2025-05-17 19:05:07 [facility] 24 IU/L ( issing) Result panel 78 Alanine aminotransferase [Enzymatic activity/volume] in Serum or Plasma 2025-05-17 19:05:07 [facility] Result panel 79 Alkaline phosphatase [Enzyma tic activity/volume] in Serum or Plasma 2025-05-17 19:05:07 [facility] 91 U/L (miss ing) Result panel 80 Protein total ser/plas 2025-05-17 19:05:07 [facility] 6 .5 g/dL (missing) Result panel 81 Albumin [Mass/volume] in Ser um or Plasma 2025-05-17 19:05:07 [facility] 3.8 g/dL (miss ing) Result panel 82 Globulin [Mass/volume] in Serum by calculation 2025-05-17 19:05:07 [facility] 2.7 g/dL (missing) Result panel 83 Albumin/Globulin [Mass Ratio] in Serum or Plasma 2025-05-17 19:05:07 [facility] 1.4 (miss ing) (missing) Result panel 84 Lipase [Enzymatic activity/volume] in Serum or Plasma 2025-05-17 19:05:07 [facility] 171 U/L (miss ing) Result panel 85 Procalcitonin [Mass/volume] in Serum or Plasma 2025-05-17 19:05:07 [facility] 0.065 ng/mL (missing) Result panel 86 Mean corpuscular hemoglobin (MCH) determination 2025-05-17 19:05:07 [facility] 33.7 PG (missing) Result panel 87 Mean corpuscular hemoglobin concentration (MCHC) determination 2025-05-17 19:05:07 [facility] 35.4 % (mis sing) Result panel 88 Red cell distribution width determination 2025-05-17 19:05:07 [facility] 13.5 % (mis sing) Result panel 89 Platelet count 2025-05-17 19:05:07 [facility] 113 X10^3/uL (missing) Result panel 90 Occult Blood Urine UA 2025-05-17 19:20 [facility] 1 (missing) (missing) Urobilinogen Urine UA 2025-05-17 19:20 [facility] 1.0 e.u./dl (missing) Specific [place] Urine UA 2025-05-17 19:20 [facility] 1.015 (missing) (missing) WBC Urine 2025-05-17 19:20 [facility] 10-30/HPF (missing) (missing) Urine Volume 2025-05-17 19:20 [facility] 10mL (spun) (missing) (missing) Leukocyte Esterase Urine UA 2025-05-17 19:20 [facility] 2 (missing) (missing) pH Urine UA 2025-05-17 19:20 [facility] 7.5 (missing) (missing) Appearance Urine UA 2025-05-17 19:20 [facility] CLEAR (missing) (missing) Bacteria Urine 2025-05-17 19:20 [facility] Many (>30) (missing) (missing) Bilirubin Urine UA 2025-05-17:20 [facility] NEGATIVE (missing) (missing) Ketones Urine UA 2025-05-17 19:20 [facility] NEGATIVE (missing) (missing) Protein Urine UA 2025-05-17 19:20 [facility] NEGATIVE (missing) (missing) Glucose Urine UA 2025-05-17 19:20 [facility] NEGATIVE g/dl (missing) RBC Urine 2025-05-17 19:20 [facility] None Seen (missing) (missing) Squamous Epithelial Cell Urine 2025-05-17 19:20 [facility] None Seen (missing) (missing) Nitrite Urine UA 2025-05-17 19:20 [facility] POSITIVE (missing) (missing) Culture Indicated Urine 2025-05-17 19:20 [facility] Specimen Cultured (missing) (missing) Color Urine UA 2025-05-17 19:20 [facility] YELLOW (missing) Urine Source: Urine, Catheterized Culture if Indicated? Y Result panel 91 Basophils Absolute Auto 2025-05-17 19:[address] [place] [address] 0 /ul (missing) Basophils Percent Auto 2025-05-17 19:[address] [place] [address] 0.7 % (missing) Lymphocytes Absolute Auto 2025-05-17 19:[address] [place] [address] 1 000 /ul (missing) Platelet Count 2025-05-17 19:[address] [place] [address] 113 x1 0 3/ul (missing) Hemoglobin 2025-05-17 19:[address] [place] [address] 12.9 g/dl (missing) Red Cell Distribution Width 2025-05-17 19:[address] [place] [address] 13.5 % (missing) Lymphocytes Percent Auto 2025-05-17 19:[address] [place] [address] 19 .1 % (missing) Eosinophils Absolute Auto 2025-05-17 19:[address] [place] [address] 2 00 /ul (missing) Eosinophils Percent Auto 2025-05-17 19:[address] [place] [address] 3. 6 % (missing) Red Blood Cell Count 2025-05-17 19:[address] [place] [address] 3.83 x10 6/ul (missing) Mean Corpuscular Hemoglobin 2025-05-17 19:[address] [place] [address] 33.7 pg (missing) Mean Corpuscular HGB Conc 2025-05-17 19:[address] [place] [address] 3 5.4 % (missing) Hematocrit 2025-05-17 19:[address] [place] [address] 36.4 % (missing) Neutrophils Absolute Auto 2025-05-17 19:[address] [place] [address] 3 600 /ul (missing) Monocytes Absolute Auto 2025-05-17 19:[address] [place] [address] 400 /ul (missing) White Blood Cell Count 2025-05-17 19:[address] [place] [address] 5.2 x10 3/ul (missing) Neutrophils Percent Auto 2025-05-17 19:[address] [place] [address] 69 .6 % (missing) Monocytes Percent Auto 2025-05-[address] [place] [address] 7.0 % (missing) Mean Corpuscular Volume 2025-05-17 19:[address] [place] [address] 95. 1 fl (missing) Result panel 92 Lactate (Lactic Acid) 2025-05-17 19:[address] [place] [address] 0.6 mmol/l Yes/No query for Sepsis Lactate Rule Y Bilirubin Total 2025-05-17 19:[address] [place] [address] 0.8 mg/dl (missing) Creatinine 2025-05-17 19:46 [facility] 0.99 mg/dl (missing) Albumin Globulin Ratio 2025-05-17 19:46 [facility] 1.4 (missing) (missing) Chloride 2025-05-17 19:46 [facility] 101 mmol/l (missing) Sodium 2025-05-17 19:46 [facility] 133 mmol/l (missing) Alanine Aminotransferase 2025-05-17 19:46 [facility] 14 iu/l (missing) Lipase 2025-05-17 19:46 [facility] 171 u/l (missing) Magnesium 2025-05-17 19:46 [facility] 2.3 mg/dl (missing) Globulin 2025-05-17 19:46 [facility] 2.7 g/dl (missing) Aspartate Aminotransferase 2025-05-17 19:46 [facility] 24 iu/l (missing) Blood Urea Nitrogen 2025-05-17 19:46 [facility] 25 mg/dl (missing) BUN Creatinine Ratio 2025-05-17 19:46 [facility] 25.3 (missing) (missing) Carbon Dioxide 2025-05-17 19:46 [facility] 27 mmol/l (missing) Albumin 2025-05-17 19:46 [facility] 3.8 g/dl (missing) Potassium 2025-05-17 19:46 [facility] 5.0 mmol/l (missing) Estimated Glomerular Filt Rate 2025-05-17 19:46 [facility] 57 ml/min Reported eGFR is based the CKD-EPI 2020 equation that does not use a race coefficient. An eGFR below 60 mL/min/1.73m2 suggests that some kidney damage has occurred, and indicative of chronic kidney disease if persisting greater than 3 months. An eGFR less than 15 is indicative of kidney failure. Total Protein 2025-05-17 19:46 [facility] 6.5 g/dl (missing) Calcium 2025-05-17 19:46 [facility] 9.1 mg/dl (missing) Glucose 2025-05-17 19:46 [facility] 90 mg/dl (missing) Alkaline Phosphatase 2025-05-17 19:46 [facility] 91 u/l (missing) Result panel 93 Troponin I 2025-05-17 19:53 [facility] < 0.012 ng/ml Ortho Troponin-I Recommended Upper Reference Range & Cutoff The 99th Percentile URL: 0.034 ng/mL AMI Diagnostic Cutoff: 0.120 ng/mL Bilirubin Total 2025-05-17 19:[address] [place] [address] 0.8 mg/dl (missing) Creatinine 2025-05-17 19:[address] [place] [address] 0.99 mg/dl (missing) Albumin Globulin Ratio 2025-05-17 19:[address] [place] [address] 1.4 (missing) (missing) Chloride 2025-05-17 19:[address] [place] [address] 101 mmol/l (missing) Sodium 2025-05-17 19:[address] [place] [address] 133 mmol/l (missing) Alanine Aminotransferase 2025-05-17 19:[address] [place] [address] 14 iu/l (missing) Lipase 2025-05-17 19:[address] [place] [address] 171 u/l (missing) NT-proBNP (BNP-Adult 18+) 2025-05-17 :[address] [place] [address] 1820 pg/ml The following cut-points have been suggested for the use of proBNP for the diagnostic evaluation of heart failure (HF) in patients with acute dyspnea: Modality Age in Years Optimal Cut-Off -------- Heart Failure Unlikely: Exclusion Age Independent 300 pg/mL Heart Failure Likely: Diagnostic <50 450 pg/mL 50-75 900 pg/mL >75 1800 pg/mL The 300 pg/mL age-independent rule-out cutoff can be used to identify ED patients in whom HF (heart failuire) is unlikely and who need further investigations for non-cardiac causes of dyspnea. The natriuretic peptides values increase with age, therefore, applying age-dependent rule-in cutoffs (450, 900, and 1800 pg/mL) increases the specificity and positive predictive value for diagnosing patients in whom HF is likely. As mild natriuretic peptides elevations can be caused by non-HF conditions, VITROS NT-proBNP II test results between the exclusion and the diagnosis cutoffs should be considered in the context of the clinical presentation and physical examination in order to correctly identify or exclude HF. Magnesium 2025-05-17:[address] [place] [address] 2.3 mg/dl (missing) Globulin 2025-05-17:[address] [place] [address] 2.7 g/dl (missing) Aspartate Aminotransferase 2025-05-17 19:[address] [place] [address] 24 iu/l (missing) Blood Urea Nitrogen 2025-05-17 19:53 [facility] 25 mg/dl (missing) BUN Creatinine Ratio 2025-05-17 19:53 [facility] 25.3 (missing) (missing) Carbon Dioxide 2025-05-17 19:53 [facility] 27 mmol/l (missing) Albumin 2025-05-17 19:53 [facility] 3.8 g/dl (missing) Potassium 2025-05-17 19:53 [facility] 5.0 mmol/l (missing) Estimated Glomerular Filt Rate 2025-05-17 19:53 [facility] 57 ml/min Reported eGFR is based the CKD-EPI 2020 equation that does not use a race coefficient. An eGFR below 60 mL/min/1.73m2 suggests that some kidney damage has occurred, and indicative of chronic kidney disease if persisting greater than 3 months. An eGFR less than 15 is indicative of kidney failure. Total Protein 2025-05-17 19:53 [facility] 6.5 g/dl (missing) Calcium 2025-05-17 19:[address] [place] [address] 9.1 mg/dl (missing) Glucose 2025-05-17 19:53 [facility] 90 mg/dl (missing) Alkaline Phosphatase 2025-05-17 19:53 [facility] 91 u/l (missing) Result panel 94 Procalcitonin 2025-05-17 20:06 [facility] 0.065 ng/ ml <0.5 ng/mL Systemic infection (sepsis) not likely >0.5- <2.0 ng/mL Systemic infection possible and should be correlated with patient's clinical condition. >2.0 - <10.0 ng/mL Systemic infection is likely. High risk for progression to sever sepsis/ or septic shock. >10.0 ng/mL Important systemic inflammoratory response, almost exclusively due to severe bacterial sepsis or septic shock. Lower Respiratory Tract Infection: <0.1 ng/mL Indicates absence of bacterial infection. >=0.1- <0.25 ng/mL Bacterial infection unlikely >=0.25- <0.5 ng/mL Bacterial infection possible >=0.5 ng/mL Suggests the presence of bacterial infection. Neonates <48 hours old have increased PCT levels without corresponding to sepsis. Result panel 95 CAT scan report 2025-05-17 20:17 [facility] (missing) ( missing) (missing) Result panel 96 CAT scan report 2025-05-17 20:17 [facility] (missing) ( missing) (missing) Result panel 97 X-ray report 2025-05-17 20:37 [facility] (missing) (mis sing) (missing) Result panel 98 X-ray report 2025-05-17 20:37 [facility] (missing) (mis sing) (missing) Result panel 99 Creatine Kinase (CK), MB 2025-05-18 00:00 [facility] 1. 6 ng/ml (missing) Result panel 100 Emergency department note 2025-05-18 00:58 [facility] (missing) (missing) (missing ) Result panel 101 White blood cell count 2025-05-18 04:31:08 [facility] 4 .8 X10^3/uL (missing) Result panel 102 Red blood cell count 2025-05-18 04:31:08 [facility] 3.6 7 X10^6/uL (missing) Result panel 103 Hemoglobin 2025-05-18 04:31:08 [facility] 12.2 g/d L (missing) Result panel 104 Hematocrit 2025-05-18 04:31:08 [facility] 35.1 % (missing) Result panel 105 MCV (mean corpuscular volume ) determination 2025-05-18 04:31:08 [facility] 95.5 fL (mis sing) Result panel 106 Mean corpuscular hemoglobin (MCH) determination 2025-05-18 04:31:08 [facility] 33.3 PG (missing) Result panel 107 Mean corpuscular hemoglobin concentration (MCHC) determination 2025-05-18 04:31:08 [facility] 34.9 % (mis sing) Result panel 108 Red cell distribution width determination 2025-05-18 04:31:08 [facility] 13.8 % (mis sing) Result panel 109 Platelet count 2025-05-18 04:31:08 [facility] 95 X10^3/uL (missing) Result panel 110 Automated neutrophil % 2025-05-18 04:31:08 [facility] 6 9.1 % (missing) Result panel 111 Automated lymphocyte % 2025-05-18 04:31:08 [facility] 1 6.3 % (missing) Result panel 112 Automated monocyte % 2025-05-18 04:31:08 [facility] 10. 1 % (missing) Result panel 113 Automated eosinophil % 2025-05-18 04:31:08 [facility] 4 .3 % (missing) Result panel 114 Automated basophil % 2025-05-18 04:31:08 [facility] 0.2 % (missing) Result panel 115 Absolute neutrophil count 2025-05-18 04:31:08 [facility] l 3300 /uL (missing) Result panel 116 Absolute lymphocyte [facility] 2025-05-18 04:31:[facility] ([facility] Result panel 117 Automated blood monocyte count 2025-05-18 04:31:08 [facility] spital 500 /uL (missing) Result panel 118 Automated eosinophil count 2025-05-18 04:31:08 [facility] ([facility]) Result panel 119 Automated basophil count 2025-05-18 04:31:08 [facility] 0 /uL (missing) Result panel 120 Sodium [Moles/volume] in Serum or Plasma 2025-05-18 04:31:08 [facility] 134 mmol/L ([facility]) Result panel 121 Potassium [Moles/volume] in Serum or Plasma 2025-05-18 04:31:08 [facility] 4.2 mmol/L ([facility]) Result panel 122 Chloride [Moles/volume] in Serum or Plasma 2025-05-18 04:31:08 [facility] 106 mmol/L ([facility]) Result panel 123 Carbon dioxide, total [Moles/volume] in Serum or Plasma 2025-05-18 04:31:08 [facility] 22 mmol/L (miss ing) Result panel 124 Urea nitrogen [Mass/volume] in Serum or Plasma 2025-05-18 04:31:08 [facility] Result panel 125 Creatinine [Mass/volume] in Serum or Plasma 2025-05-18 04:31:08 [facility] 0.94 mg/dL ([facility]) Result panel 126 Glomerular filtration rate (GFR) estimation 2025-05-18 04:31:08 [facility] > 60 mL/min (missing) (missing) Result panel 127 BUN/creatinine ratio 2025-05-18 04:31:08 [facility] 24. 5 (missing) (missing) Result panel 128 Glucose [Mass/volume] in Ser um or Plasma 2025-05-18 04:31:08 [facility] 85 mg/dL (miss ing) Result panel 129 Calcium [Mass/volume] in Serum or Plasma 2025-05-18 04:31:08 [facility] 8.6 mg/dL (m issing) Result panel 130 Basophils Absolute Auto 2025-05-18 05:[address] [place] [address] 0 /ul (missing) Basophils Percent Auto 2025-05-18 05:[address] [place] [address] 0.2 % (missing) Monocytes Percent Auto 2025-05-18 05:[address] [place] [address] 10.1 % (missing) Hemoglobin 2025-05-18 05:[address] [place] [address] 12.2 g/dl (missing) Red Cell Distribution Width 2025-05-18 05:[address] [place] [address] 13.8 % (missing) Lymphocytes Percent Auto 2025-05-18 05:[address] [place] [address] 16 .3 % (missing) Eosinophils Absolute Auto 2025-05-18 05:[address] [place] [address] 2 00 /ul (missing) Red Blood Cell Count 2025-05-18 05:[address] [place] [address] 3.67 x10 6/ul (missing) Mean Corpuscular Hemoglobin 2025-05-18 05:[address] [place] [address] 33.3 pg (missing) Neutrophils Absolute Auto 2025-05-18 05:[address] [place] [address] 3 300 /ul (missing) Mean Corpuscular HGB Conc 2025-05-18 05:[address] [place] [address] 3 4.9 % (missing) Hematocrit 2025-05-18 05:[address] [place] [address] 35.1 % (missing) Eosinophils Percent Auto 2025-05-18 05:[address] [place] [address] 4. 3 % (missing) White Blood Cell Count 2025-05-18 05:[address] [place] [address] 4.8 x10 3/ul (missing) Monocytes Absolute Auto 2025-05-18 05:[address] [place] [address] 500 /ul (missing) Neutrophils Percent Auto 2025-05-18 05:[address] [place] [address] 69 .1 % (missing) Lymphocytes Absolute Auto 2025-05-18 05:[address] [place] [address] 8 00 /ul (missing) Platelet Count 2025-05-18 05:[address] [place] [address] 95 x1 0 3/ul (missing) Mean Corpuscular Volume 2025-05-18 05:[address] [place] [address] 95. 5 fl (missing) Result panel 131 Estimated Glomerular Filt Rate 2025-05-18 05:28 [facility] > 60 ml/min Reported eGFR is based the CKD-EPI 202 equation that does not use a race coefficient. An eGFR below 60 mL/min/1.73m2 suggests that some kidney damage has occurred, and indicative of chronic kidney disease if persisting greater than 3 months. An eGFR less than 15 is indicative of kidney failure. Creatinine 2025-05-18 05:[address] [place] [address] 0.94 mg/dl (missing) Chloride 2025-05-18 05:[address] [place] [address] 106 mmol/l (missing) Sodium 2025-05-18 05:[address] [place] [address] 134 mmol/l (missing) Carbon Dioxide 2025-05-18 05:[address] [place] [address] 22 mm ol/l (missing) Blood Urea Nitrogen 2025-05-18 05:[address] [place] [address] 23 mg/dl (missing ) BUN Creatinine Ratio 2025-05-18 05:[address] [place] [address] 24.5 (missing) (missing ) Potassium 2025-05-18 05:[address] [place] [address] 4.2 mmol/l (missing) Calcium 2025-05-18 05:[address] [place] [address] 8.6 mg/dl (missing) Glucose 2025-05-18 05:[address] [place] [address] 85 mg/dl (missing) Result panel 132 [place] Count 2025-05-18 07:42 [facility] >100,000 cfu/ml (missing) ORGANISM 2025-05-18 07:42 [facility] GNBGram negative bacilli (missing) (missing) Action to follow 2025-05-18 07:42 [facility] Identification and Sensitivity to Follow (missing) (missing) Result panel 133 Blood Culture 2025-05-18 20:30 [facility] (missing) (mi ssing) (missing) Blood Culture 2025-05-18 20:30 [facility] NO GROW TH AFTER 24 HOURS (missing) (missing) Result panel 134 Urine Culture 2025-05-19 07:12 [facility] (missing) (missing) (missing) [place] Count 2025-05-19 07:12 [facility] >100,000 cfu/ml (missing) Ampicillin 2025-05-19 07:12 [facility] >=32 (missing) (missing) Ciprofloxacin 2025-05-19 07:12 [facility] >=4 (missing) (missing) Levofloxacin 2025-05-19 07:12 [facility] >=8 (missing) (missing) Ertapenem 2025-05-19 07:12 [facility] <=0.12 (missing) (missing) Ceftriaxone 2025-05-19 07:12 [facility] <=0.25 (missing) (missing) Meropenem 2025-05-19 07:12 [facility] <=0.25 (missing) (missing) Gentamicin 2025-05-19 07:12 [facility] <=1 (missing) (missing) Tetracycline 2025-05-19 07:12 [facility] <=1 (missing) (missing) Nitrofurantoin 2025-05-19 07:12 [facility] <=16 (missing) (missing) Trimethoprim/Sulfa methoxazole 2025-05-19 07:12 [facility] <=20 (missing) (missing) Cefepime E-test 2025-05-19 07:12 [facility] 0.25 (missing) (missing) Amoxicillin/Clavul anate 2025-05-19 07:12 [facility] 16 (missing) (missing) Cefazolin 2025-05-19 07:12 [facility] 16 (missing) (missing) Piperacillin/Tazob actam 2025-05-19 07:12 [facility] 32 (missing) (missing) ORGANISM 2025-05-19 07:12 [facility] ESCCOLEscherichia coli (missing) (missing) Urine Culture 2025-05-19 07:12 [facility] Isolates that test susceptible to tetracycline are (missing) (missing) Action to follow 2025-05-19 07:12 [facility] No Further Workup (missing) (missing) Urine Culture 2025-05-19 07:12 [facility] considered susceptible to doxycycline and minocycline. (missing) (missing) Result panel 135 [facility] Creatine Kinase MB 2025-05-19 13:41 [facility] 1.6 ng/ml Performe d at: - [facility] [address] [id number] Distribution Engineer: Zackary Hameed MD, Phone: [phone] Result panel 136 Blood Culture 2025-05-19 20:29 [facility] (missing) (mi ssing) (missing) Blood Culture 2025-05-19 20:29 [facility] NO GROW TH AFTER 48 HOURS (missing) (missing) Result panel 137 Blood Culture 2025-05-20 20:30 [facility] (missing) (mi ssing) (missing) Blood Culture 2025-05-20 20:30 [facility] NO GROW TH AFTER 72 HOURS (missing) (missing) Result panel 138 Blood Culture 2025-05-21 20:30 [facility] (missing) (ky ssing) (missing) Blood Culture 2025-05-21 20:30 [facility] NO GROW TH AFTER 4 DAYS (missing) (missing) Result panel 139 Blood Culture 2025-05-22 20:29 [facility] (missing) (mi ssing) (missing) Blood Culture 2025-05-22 20:29 [facility] NO GROW TH AFTER 5 DAYS (missing) (missing) Social History date description facility 2025-05-17 00:00 Tobacco smoking consumption unk jimmy (finding) [facility] Vital Signs date measurement value units 2025-05-17 00:00 BMI 31.8 kg/m2 2025-05-17 00:00 BP_diastolic 51 mmHg 2025-05-17 00:00 BP_systolic 93 mmHg 2025-05-17 00:00 heart_rate 71 /min 2025-05-17 00:00 height_metric 177.8 cm 2025-05-17 00:00 o2_saturation 96 % 2025-05-17 00:00 respiration_rate 20 /min 2025-05-17 00:00 temperature_standard 97.7 F 2025-05-17 00:00 weight_metric 100.69 kg 2025-05-17 00:00 weight_metric 104.50 kg 2025-05-19 00:00 BP_diastolic 65 mmHg 2025-05-19 00:00 BP_systolic 126 mmHg 2025-05-19 00:00 heart_rate 70 /min 2025-05-19 00:00 o2_saturation 97 % 2025-05-19 00:00 respiration_rate 16 /min 2025-05-19 00:00 temperature_standard 97.1 F
[2025-05-23 11:03] LABS: GLUCOSE, URINE (UA) NEGATIVE (NEGATIVE); KETONES,URINE (UA) NEGATIVE (NEGATIVE); OCCULT BLOOD,URINE NEGATIVE (NEGATIVE)
--- NOTE | 2025-05-23 11:22 | ED Physician Documentation ---
PD HPI Fall Stated complaint Stated Complaint: SOA,FALL,LT LEG PX Chief complaint Chief Complaint: General History obtained from History obtained from: Patient and Family Additional information Additional information: Michelle Trevizo is an 80-year-old female with a history of dementia atrial fibrillation on Pradaxa and congestive heart failure. She is presenting today after a fall 2 days ago shortly after being discharged from [facility] for urinary tract infection. She is presenting today with some mild shortness of breath pain in the left chest wall pain and left hip and in the coccyx. Tera Coma Scale Assess Eye opening: Spontaneous Verbal response: Confused Motor response: Obeys Commands Total score: 14 Review of Systems The patient denies fever or cough she does have some shortness of air and pain to the left chest wall. She currently denies diarrhea constipation or urinary symptoms. She does have some pain in the left hip she has some pain in the tailbone. Meds/Allgy Home Medications Ambulatory Orders Medication Instructions Recorded Confirmed dabigatran etexilate 75 mg capsule 150 mg PO BID 04/0705/22/25 (Pradaxa) multivitamin 1 tab PO DAILY 04/07/2101/08 ascorbic acid (vitamin C) 1,000 mg 1 g PO Q6H 09/13/24 04/21/25 tablet cholecalciferol (vitamin D3) 25 50 mcg PO QDAY 5 04/21/25 mcg (1,000 unit) capsule cranberry fruit 400 mg tablet 400 mg PO QDAY 09/13/24 04/21/25 mecobalamin (vitamin B12) 1,000 1,000 mcg PO QDAY 08/1804/21/25 mcg chewable tablet melatonin 10 mg capsule 10 mg PO HS PRN 09/13/2401/08 miconazole nitrate 2 % topical 1 spray topical BID 04/21/25 spray powder nystatin 100,000 unit/gram topical 1 applic topical BI D 09/13/24 04/21/25 powder spironolactone 25 mg tablet 25 mg PO QAM Diuretic 08/1805/22/25 walker #1 ea 09/17/24 04/21/25 estradiol 0.01% (0.1 mg/gram) 1 appful vaginal QDAY 04/21/25 vaginal cream atorvastatin 20 mg tablet 20 mg PO QPM #90 tabs 05/22/25 carvedilol 3.125 mg tablet 3.125 mg PO BID Beta Blocke r, 12/17/24 05/22/25 Prosthetic valve #60 tabs donepezil 10 mg tablet 10 mg PO Q OTHER DAY Memory #60 12/17/24 05/22/25 tabs mirtazapine 7.5 mg tablet 7.5 mg PO .nightly 12/17/24 05/22/25 Memory/Depression #60 tabs nitroglycerin 0.4 mg sublingual 0.4 mg sublingual PRN PRN As 12/17/24 04/21/25 tablet Needed Per Provider Orders # 7 tabs allopurinol 200 mg tablet 200 mg PO QDAY #90 tabs 12/1605/22/25 olanzapine 2.5 mg tablet (Zyprexa) 5 mg (2 x 2.5 mg) P O BID Memory 03/14/25 03/14/25 #180 tabs furosemide 40 mg tablet 40 mg PO Q OTHER DAY PRN fern ma #30 04/09/25 05/22/25 tabs amoxicillin 500 mg capsule 500 mg PO Q12H Prophylaxis #60 04/21/25 04/21/25 caps memantine 21 mg capsule 21 mg PO QDAY #90 ea 5 05/22/25 sprinkle,extended release 24hr Allergies Allergies Allergy/AdvReac Type Severity Reaction Status Date / Time codeine Allergy Intermediate Nausea Verified 05/23/25 09:39 aspirin Allergy Unknown Verified 05/23/25 09:39 egg Allergy Cramps Verified 05/23/25 09:39 metoprolol Allergy Unknown Verified 05/23/25 09:39 morphine Allergy Unknown Verified 05/23/25 09:39 simvastatin (From Zocor) Allergy Unknown Verified 05/23/25 09:39 Sulfa (Sulfonamide Allergy Unknown Verified 05/23/25 09:39 Antibiotics) hydrocodone bitartrate * AdvReac Intermediate Nausea Verified 05/23/25 09:39 (From Vicodin) oxycodone HCl * (From AdvReac Intermediate Nausea Verified 05/23/25 09:39 Percocet) acetaminophen (From Tylenol) AdvReac Mild Nausea Verified 05/23/25 09:39 lactose AdvReac Mild Diarrhea Verified 05/23/25 09:39 latex AdvReac Rash Verified 05/23/25 09:39 PFS Active Problems All Active Problems (Updated 05/23/25 @ 18:42 by Adiel Lindsay MD) Delirium (Acute) Chest wall contusion (Acute) Acute lumbar myofascial strain (Acute) Coccyx contusion (Acute) Pericarditis (Acute) Pericarditis (Acute) Delirium (Acute) Cystitis (Acute) Encounter for screening involving social determinants of health (SDoH) (Acute) Vascular dementia with behavioral disturbance (Acute) Choking due to food in larynx (Acute) Annual wellness visit (Acute) Falls frequently (Acute) Obstructive sleep apnea (Acute 05/12/23) Diabetes mellitus (Acute 09/13/10) Dementia (Acute 02/02/21) Congestive heart failure (Acute 04/26/21) Pacemaker (Acute) Left renal mass (Acute) History of kidney stones (Acute) At risk for fall due to comorbid condition (Chronic) Dementia without behavioral disturbance, psychotic disturbance, mood disturbance, or anxiety (Chronic) CKD stage 3b, GFR 30-44 ml/min (Chronic) Stage 3b chronic kidney disease (CKD) (Chronic) Frequency of micturition (Chronic) CKD (chronic kidney disease) stage 3, GFR 30-59 ml/min (Acute) Contusion of left hand (Acute) EARLE (obstructive sleep apnea) (Chronic) CKD (chronic kidney disease) stage 2, GFR 60-89 ml/min (Chronic) GERD (gastroesophageal reflux disease) (Chronic) HTN (hypertension) (Chronic) Pulmonary edema (Chronic) Diabetes (Chronic) Morbid obesity with BMI of 40.0-44.9, adult (Chronic) CKD (chronic kidney disease) (Acute) Dyspnea (Chronic) Congestive heart failure (Chronic) Murmur (Chronic) Medical History Medical History Viral URI (09/13/10) Viral syndrome (09/14/09) Urinary incontinence, mixed (08/17/12) Uric acid nephrolithiasis (04/11/18) Toothache (01/12/22) Tinnitus (12/21/21) Thrombocytopenia (08/09/23) Somnolence (08/23/14) Shoulder pain, left (04/22/16) Sepsis (10/25/23) Seborrheic dermatitis (02/02/21) Screening for breast cancer (04/15/15) Renal insufficiency (05/18/12) Rectal bleeding (11/09/09) Pneumonia (09/16/10) Pleural effusion (04/29/21) Paranoia (02/02/21) Pancytopenia (11/02/23) Other injury of unspecified body region, sequela (12/31/21) Other injury of unspecified body region, initial encounter (12/06/23) Osteoporosis (08/10/22) Osteopenia (04/30/13) Nonischemic cardiomyopathy (12/21/21) Muscle twitch (04/01/20) Menopausal syndrome (05/02/08) Low back pain (04/22/16) Lipoma of unspecified site (12/10/10) Leg pain, left (05/02/08) Joint pain (06/17/22) Jaw pain (05/12/23) Impaired fasting glucose (06/24/16) Hyperlipidemia (05/24/10) Hyperbilirubinemia (08/12/15) Hip pain, left (10/02/09) Hemorrhoids (12/20/06) Hematuria (11/01/17) Hearing loss, bilateral (12/21/21) Grief reaction (01/17/12) Gout (08/09/23) Gastroenteritis (01/25/08) Folliculitis (09/22/10) Flu syndrome (08/09/13) Fatigue (03/12/13) Exposure to second hand smoke (11/01/17) Epigastric pain (08/25/08) Endocarditis, valve unspecified, unspecified cause (08/09/23) Edema (04/30/13) Dyspnea on exertion (04/17/14) Diverticulitis (07/24/06) Diabetes mellitus, type II (02/02/21) Depression (01/17/12) Dementia, unspecified, with behavioral disturbance (12/21/21) Constipation (10/25/23) Chronic kidney disease, stage 3a (04/29/21) Cataracts, bilateral (12/21/21) Carpal tunnel syndrome, bilateral (04/22/16) Cardiomegaly (11/01/12) Bronchitis, acute (11/01/12) Bitten by dog, initial encounter (08/09/23) Balance problem (04/22/16) Aortic stenosis, severe (04/12/21) Anxiety (09/06/18) Acute coronary syndrome (09/05/18) Abnormal electrocardiogram (08/25/08) Abdominal pain (08/11/15) Abdominal bloating (05/02/08) Sepsis secondary to UTI Recurrent UTI History of transcatheter aortic valve replacement (TAVR) ICD (implantable cardioverter-defibrillator) in place Surgical History Surgical History Heart valve replaced 2021 History of cholecystectomy 2016 Family History Family History Mother Liver cancer Other Diabetes Heart disease High blood pressure Social History Social History Smoking Status: Never smoker Second hand tobacco smoke exposure: No Do you dip or chew tobacco?: No Do you vape?: No Living arrangement: At home Marital Status: Living Condition: With family Support Person: Yes Relationship Notes: daughter Physical Activity: other Level: Assisted Home Mobility Equipment: Wheelchair Do you feel safe in your home environment?: Yes History of physical, verbal, emotional, or financial abuse?: No ETOH Use: None Substance Use: denies use POLST Patient has POLST: Yes Exam Exam Vital Signs: Vital Signs x48h Temp Pulse Resp BP Pulse Ox 05/23/25 09:30 35.8 C L 70 18 128/73 96 80-year-old female alert and cooperative is a poor historian. She does not appear to be in distress of any kind vital signs are normal. Constitutional normal general appearance, no apparent distress, average body habitus, no limitations and alert HENMT normocephalic, head/scalp atraumatic and hearing grossly normal bilaterally Eyes PERRL and EOMs intact bilaterally Neck/C-Spine visual inspection normal, trachea midline, cervical spine nontender, cervical full ROM noted, supple and no meningeal signs Chest inspection of chest normal With palpation of the chest laterally on the left side there is some mild specific pain in this pain on the left side is not reproduced by compression of the chest anteriorly. Respiratory breath sounds equal bilaterally, normal respiratory effort, clear to auscultation bilaterally, no wheezes and no rales Cardiovascular normal heart rate noted Irregularly irregular rate and rhythm Gastrointestinal abdomen normal to inspection, abdomen soft to palpation and nontender to palpation Genitourinary no CVA tenderness and bladder normal to palpation Back/Pelvis Mild point tenderness to the lower lumbar spine and coccyx. Extremities normal to inspection There is some pain over the trochanter on the left side direct palpation there is no pain to flexion extension internal/external rotation of the hip. There is no edema. Neurology awning maker and installer II-XII intact Psychiatry mental status grossly normal and memory abnormal Skin skin color normal Results Vitals Vitals: Vital Signs - 24 hr 05/23/25 09:30 Temperature 35.8 C L Temperature Source Axillary Pulse Rate 70 Respiratory Rate 18 Blood Pressure 128/73 O2 Saturation 96 O2 Source Room air Pain Intensity 0 Oxygen O2 Source Room air EKG (time done) 182: EKG releavant findings:: EKG personally interpreted by author of this note. Relevant findings are: Rate: Rate (enter#) (70) Rhythm: Paced Compare to prior EKG: Changed from prior EKG (SPT 04-06-21 paced rhythm has replaced) Computer interpretation: Agree with computer Labs Labs: Laboratory Tests 05/23/25 05/23/25 05/23/25 10:47 11:30 11:33 WBC 5.8 RBC 3.48 L Hgb 11.5 L Hct 35.1 L MCV 100.9 H MCH 33.0 H MCHC 32.8 RDW 13.1 Plt Count 80 L MPV 9.4 Neut # (Auto) 4.4 Lymph # (Auto) 0.8 L [place] # (Auto) 0.4 Eos # (Auto) 0.2 Baso # (Auto) 0.0 Absolute Nucleated RBC 0.00 Nucleated RBC % 0.0 ESR Sodium 136 Potassium 4.8 H Chloride 103 Carbon Dioxide 30 Anion Gap 3.0 L BUN 31 H Creatinine 1.1 Estimated GFR (MDRD) 48 L Glucose 99 Calcium 8.8 Total Bilirubin 0.9 AST 18 ALT 13 Alkaline Phosphatase 74 C-Reactive Protein B-Natriuretic Peptide 122 H Total Protein 5.8 L Albumin 3.5 Globulin 2.3 Albumin/Globulin Ratio 1.5 Lipase 32 Urine Color YELLOW Urine Clarity CLEAR Urine pH 6.5 Ur Specific [place] 1.010 Urine Protein NEGATIVE Urine Glucose (UA) NEGATIVE Urine Ketones NEGATIVE Urine Occult Blood NEGATIVE Urine Nitrite NEGATIVE Urine Bilirubin NEGATIVE Urine Urobilinogen 0.2 (NORMAL) Ur Leukocyte Esterase NEGATIVE Ur Microscopic Review NOT INDICATED Urine Culture Comments NOT INDICATED 05/23/25 18:33 WBC RBC Hgb Hct MCV MCH MCHC RDW Plt Count MPV Neut # (Auto) Lymph # (Auto) [place] # (Auto) Eos # (Auto) Baso # (Auto) Absolute Nucleated RBC Nucleated RBC % ESR 23 Sodium Potassium Chloride Carbon Dioxide Anion Gap BUN Creatinine Estimated GFR (MDRD) Glucose Calcium Total Bilirubin AST ALT Alkaline Phosphatase C-Reactive Protein < 0.5 B-Natriuretic Peptide Total Protein Albumin Globulin Albumin/Globulin Ratio Lipase Urine Color Urine Clarity Urine pH Ur Specific [place] Urine Protein Urine Glucose (UA) Urine Ketones Urine Occult Blood Urine Nitrite Urine Bilirubin Urine Urobilinogen Ur Leukocyte Esterase Ur Microscopic Review Urine Culture Comments Rads (name of study) chest CT: Relevant Findings:: Prelim report reviewed and EMP independent interpretation of test (aneurysm present after being pointed out by radiologist. Effusion is subtle. ) Interpretation: Impression: No visualized fracture. Pericardial effusion. Ascending thoracic aortic aneurysm. No priors. Procedures IVC sono (time) 1120: Bedside IVC sono: IVC measures (cm) (0.9cm) and Dehydration (est 1-2 liter deficit) PD Medical Decision Making ED course Complexity details: reviewed old records, reviewed results, re-evaluated patient, considered differential and d/w patient Reviewed Lab Results: We reviewed a complete blood count showing a normal white blood cell count of 5.8 hemoglobin and hematocrit were low at 11.5 and 35.1 these are decreased from 1 year ago. She has had similar anemia previously 1-1/2 years ago. Platelets are low at 80,000 similar to what she has had previously chemistries show potassium elevated at 4.8 BUN is elevated at 31 and creatinine is normal at 1.1 this is improved for this patient. Liver functions are normal BNP is mildly elevated at 122 urinalysis done today is unremarkable these laboratory studies indicate an anemia improved kidney function and no evidence of acute failure. ED course: 80-year-old female with a fall walking down a ramp she fell backwards onto her buttocks. She did not strike her head she did not have loss of consciousness the patient is on Pradaxa. She is having pain to the left hip and to the coccyx. She contused her chest wall and is having pain in the left chest wall. She is a poor historian with a history of dementia and she has a daughter at the bedside who insist that the patient is delirious and off of her baseline considerably. She indicates that when she was admitted to the hospital in [place] she did not recover entirely. This patient came to the emergency department with a ground-level fall onto her buttocks she hit her left side and is complaining of some pain to the left chest wall as well as the left hip area. I initially did this as a fall evaluation. The diagnostic filter changing technician indicated CT scan would be better to evaluate the chest wall and the findings in the pelvis and CT scans were obtained. The CT scan of the chest showed an incidental finding of a pericardial effusion. She also has a 4.7 cm ascending aortic aneurysm. This was not an unexpected finding and not a finding I was searching for. I called the patient's diagnostic tech and was able to speak to Shirley Grey the on-call diagnostic tech for Dr. Hanks ([facility]). She was able to investigate the patient's record and indicates the patient has a TAVR in place she has had pericarditis previously and she did not have pericardial effusion on her most recent echocardiogram. She does have the known ascending aortic aneurysm. Dr. Grey suggested treatment of the patient's pericarditis with colchicine 0.6 mg twice daily. She also indicates that this patient is on long-term suppression with amoxicillin for concern about her TAVR and pericarditis being a source for sepsis. In addition she indicated that interventional processes for the ascending aortic aneurysm for removal of the TAVR are not being pursued. She recommends admission here to initiate treatment and she will be available for consultation. Discharge Plan Discharge Patient Disposition: [facility] DC/Xfer Condition: Stable Clinical Impression: Delirium Pericarditis Qualifiers: Pericarditis type: unspecified type Chronicity: unspecified Qualified Code(s): I31.9 - Disease of pericardium, unspecified Coccyx contusion Qualifiers: Encounter type: initial encounter Qualified Code(s): S30.0XXA - Contusion of lower back and pelvis, initial encounter Acute lumbar myofascial strain Qualifiers: Encounter type: initial encounter Qualified Code(s): S39.012A - Strain of muscle, fascia and tendon of lower back, initial encounter Chest wall contusion Qualifiers: Encounter type: initial encounter Laterality: left Qualified Code(s): S20.212A - Contusion of left front wall of thorax, initial encounter Interventions: ED Admission Assessment Last Done: 05/23/25 19:10 Vitals documented within 30 minutes of discharge?: No
[2025-05-23 11:39] LABS: HCT - HEMATOCRIT 35.1 % (37.0-47.0); HGB - HEMOGLOBIN 11.5 g/dL (12.0-16.0); MEAN PLATELET VOLUME 9.4 fL (7.9-10.8); NRBC ABSOLUTE COUNT (AUTO) 0.00 x10^3/uL; NUCLEATED RED BLOOD CELLS AUTO 0.0 /100WBC; PLT - PLATELET COUNT 80 10^3/uL (130-450); RED CELL DISTRIBUTION WIDTH 13.1 % (12.0-15.0)
[2025-05-23] MEDS: SODIUM CHLORIDE 0.9% 300 ML IV STA (11:44)
[2025-05-23 11:57] LABS: ALT ALANINE AMINOTRANSFERASE 13.0 IU/L (10-60); AST ASPARTATE AMINOTRANSFERASE 18.0 IU/L (10-42); BUN - BLOOD UREA NITROGEN 31.0 mg/dL (6-20); CARBON DIOXIDE - CO2 30.0 mmol/L (21-32); CREATININE 1.1 mg/dL (0.6-1.3); GFR - MDRD 48.0 (>89)
--- NOTE | 2025-05-23 15:11 | CT Report ---
PROCEDURE: CT Chest WO INDICATIONS: FALL, CHEST CONTUSION TECHNIQUE: A CT scan of the chest was performed. Intravenous contrast media was not administered. Images were recorded and evaluated at appropriate window settings. Reformats: axial MIP of the chest, coronal and sagittal. For radiation dose reduction, the following was used: automated exposure control, adjustment of mA and/or kV according to patient size. COMPARISON: Chest x-ray 2020. FINDINGS: Image quality: Diagnostic. Chest wall and lower neck: No thyroid nodule which requires sonographic follow up. No axillary or supraclavicular adenopathy by size. Lungs and pleura: No consolidation. No pleural effusions. No pneumothorax. No suspicious pulmonary nodules which require follow up. Mediastinum: Heart size is enlarged. 1.6 cm pericardial effusion. Ascending thoracic aorta measures 4.7 cm, without priors for comparison. No mediastinal adenopathy by size criteria. Bones: No aggressive osseous abnormality. Upper Abdomen: Mild hiatal hernia. Gallbladder is been removed. IMPRESSION: No visualized fracture. Pericardial effusion. Ascending thoracic aortic aneurysm. No priors. Reviewed by: Mana Moraels MD on 05/23/2025 3:08 PM PST Approved by: Mana Morales MD on 05/23/2025 3:08 PM PST Station ID: [id number]
--- NOTE | 2025-05-23 15:15 | CT Report ---
PROCEDURE: CT Lumbar Spine WO INDICATIONS: FALL, LOWER LUMBAR PAIN TECHNIQUE: Noncontrast images acquired from the T12 level to the sacrum. Sagittal and coronal reformats were constructed. For radiation dose reduction, the following was used: automated exposure control, adjustment of mA and/or kV according to patient size. COMPARISON: None. FINDINGS: Image quality: Excellent. Bones: There is normal bony alignment. No acute vertebral body compression fractures. No suspicious lytic or blastic bony lesions. Central spinal caliber is of normal overall caliber. No pars defects. Multilevel degenerative disc space narrowing is present. Mild to moderate spinal stenosis at L4-5. Multilevel bilateral foraminal narrowing overall moderate, noting moderate to severe at L3-4, L4-5 and L5-S1 with facet and ligamentum flavum hypertrophy. Soft tissues: No retroperitoneal masses or hematomas. Visualized aorta is normal in caliber. IMPRESSION: Multilevel degenerative changes without visualized fracture. Reviewed by: Mana Morales MD on 05/23/2025 3:12 PM PST Approved by: Mana Morales MD on 05/23/2025 3:12 PM PST Station ID: [id number]
--- NOTE | 2025-05-23 15:18 | CT Report ---
PROCEDURE: CT Pelvis WO INDICATIONS: FALL, L HIP PAIN TECHNIQUE: Noncontrast CT was obtained through the bony pelvis, with coronal and sagittal reformatting. For radiation dose reduction, the following was used: automated exposure control, adjustment of mA and/or kV according to patient size. COMPARISON: CT KUB 02/14/2025 FINDINGS: Image quality: Excellent. Bones: No visualized fracture or dislocation. No suspicious osseous lesions. Moderate degenerative changes are present within the hip joints bilaterally. Soft tissues: No visualized bowel obstruction. Bladder is distended. Scattered minimal diverticula. IMPRESSION: No visualized fracture. Reviewed by: Mana Morales MD on 05/23/2025 3:14 PM PST Approved by: Mana Morales MD on 05/23/2025 3:14 PM PST Station ID: [id number]
[2025-05-23] MEDS: CHERRY SYRUP 10 ML UDC PO ONE (15:43)
[2025-05-23] MEDS: DEXAMETHASONE 10 MG/ML VIAL PO STA (15:43)
--- NOTE | 2025-05-23 18:29 | CT Report ---
PROCEDURE: CT Head WO INDICATIONS: fall altered on pradaxa TECHNIQUE: CT of the head was performed, without intravenous contrast. Reformats: Coronal and sagittal. For radiation dose reduction, the following was used: automated exposure control, adjustment of mA and/or kV according to patient size. COMPARISON: 12/23/2021 FINDINGS: Image quality: Diagnostic. CSF spaces: Basal cisterns are patent. No extra-axial fluid collections. Ventricles are normal in size and shape. Brain: No midline shift. No intracranial mass effect or hemorrhage. [place]- white matter interface is normal. Age appropriate volume loss and periventricular white matter hypoattenuation, likely chronic ischemic change. Skull and face: Calvarium and visualized facial bones are intact, without suspicious lesions. Sinuses: Visualized sinuses and mastoids are clear. IMPRESSION: No acute intracranial pathology. Reviewed by: Kiko Reagan MD on 05/23/2025 6:26 PM PST Approved by: Kiko Reagan MD on 05/23/2025 6:26 PM PST Station ID: [id number]
--- NOTE | 2025-05-23 18:32 | HISTORY & PHYSICAL EXAMINATION ---
Chief Complaint Chief Complaint Chief Complaint: Hip pain History of Present Illness History Obtained From History obtained from: Patient interview History of Present Illness HPI Comment/Other: 80-year-old female with history of dementia, atrial fibrillation on Pradaxa, CHF HFrEF as of echocardiogram 04/06 presents to the hospital because She has been having falls. She had a fall 2 days ago, and was worked up at [facility] and found to have a UTI. She reports that she is still having pain in her left hip as well as her left chest wall and in her coccyx. Her daughter reports that she has been increasingly confused, so she was brought to [facility] ER. Denies fever, chills, dyspnea, bowel/bladder abnormality In the ER, lab work was overall unremarkable. CT head, pelvis, L-spine all without acute findings. Her CT chest, however, showed a pericardial effusion. Cardiology was consulted by the ER provider, and they reported that this is quite possibly pericarditis, and recommended observation with colchicine. Patient is being placed in observation for increased confusion as well as her pericarditis Meds/Allgy Home Medications Ambulatory Orders Medication Instructions Recorded Confirmed dabigatran etexilate 75 mg capsule 150 mg PO BID 04/0705/22/25 (Pradaxa) multivitamin 1 tab PO DAILY 04/07/2101/08 ascorbic acid (vitamin C) 1,000 mg 1 g PO Q6H 09/13/24 04/21/25 tablet cholecalciferol (vitamin D3) 25 50 mcg PO QDAY 5 04/21/25 mcg (1,000 unit) capsule cranberry fruit 400 mg tablet 400 mg PO QDAY 09/13/24 04/21/25 mecobalamin (vitamin B12) 1,000 1,000 mcg PO QDAY 08/1804/21/25 mcg chewable tablet melatonin 10 mg capsule 10 mg PO HS PRN 09/13/2401/08 miconazole nitrate 2 % topical 1 spray topical BID 04/21/25 spray powder nystatin 100,000 unit/gram topical 1 applic topical BI D 09/13/24 04/21/25 powder spironolactone 25 mg tablet 25 mg PO QAM Diuretic 08/1805/22/25 walker #1 ea 09/17/24 04/21/25 estradiol 0.01% (0.1 mg/gram) 1 appful vaginal QDAY 04/21/25 vaginal cream atorvastatin 20 mg tablet 20 mg PO QPM #90 tabs 05/22/25 carvedilol 3.125 mg tablet 3.125 mg PO BID Beta Blocke r, 12/17/24 05/22/25 Prosthetic valve #60 tabs donepezil 10 mg tablet 10 mg PO Q OTHER DAY Memory #60 12/17/24 05/22/25 tabs mirtazapine 7.5 mg tablet 7.5 mg PO .nightly 12/17/24 05/22/25 Memory/Depression #60 tabs nitroglycerin 0.4 mg sublingual 0.4 mg sublingual PRN PRN As 12/17/24 04/21/25 tablet Needed Per Provider Orders # 7 tabs allopurinol 200 mg tablet 200 mg PO QDAY #90 tabs 12/1605/22/25 olanzapine 2.5 mg tablet (Zyprexa) 5 mg (2 x 2.5 mg) P O BID Memory 03/14/25 03/14/25 #180 tabs furosemide 40 mg tablet 40 mg PO Q OTHER DAY PRN fern ma #30 04/09/25 05/22/25 tabs amoxicillin 500 mg capsule 500 mg PO Q12H Prophylaxis #60 04/21/25 04/21/25 caps memantine 21 mg capsule 21 mg PO QDAY #90 ea 5 05/22/25 sprinkle,extended release 24hr Allergies Allergies Allergy/AdvReac Type Severity Reaction Status Date / Time codeine Allergy Intermediate Nausea Verified 05/23/25 09:39 aspirin Allergy Unknown Verified 05/23/25 09:39 egg Allergy Cramps Verified 05/23/25 09:39 metoprolol Allergy Unknown Verified 05/23/25 09:39 morphine Allergy Unknown Verified 05/23/25 09:39 simvastatin (From Zocor) Allergy Unknown Verified 05/23/25 09:39 Sulfa (Sulfonamide Allergy Unknown Verified 05/23/25 09:39 Antibiotics) hydrocodone bitartrate * AdvReac Intermediate Nausea Verified 05/23/25 09:39 (From Vicodin) oxycodone HCl * (From AdvReac Intermediate Nausea Verified 05/23/25 09:39 Percocet) acetaminophen (From Tylenol) AdvReac Mild Nausea Verified 05/23/25 09:39 lactose AdvReac Mild Diarrhea Verified 05/23/25 09:39 latex AdvReac Rash Verified 05/23/25 09:39 PFSH Active Problems All Active Problems (Updated 05/23/25 @ 18:42 by Adiel Lindsay MD) Delirium (Acute) Chest wall contusion (Acute) Acute lumbar myofascial strain (Acute) Coccyx contusion (Acute) Pericarditis (Acute) Pericarditis (Acute) Delirium (Acute) Cystitis (Acute) Encounter for screening involving social determinants of health (SDoH) (Acute) Vascular dementia with behavioral disturbance (Acute) Choking due to food in larynx (Acute) Annual wellness visit (Acute) Falls frequently (Acute) Obstructive sleep apnea (Acute 05/12/23) Diabetes mellitus (Acute 09/13/10) Dementia (Acute 02/02/21) Congestive heart failure (Acute 04/26/21) Pacemaker (Acute) Left renal mass (Acute) History of kidney stones (Acute) At risk for fall due to comorbid condition (Chronic) Dementia without behavioral disturbance, psychotic disturbance, mood disturbance, or anxiety (Chronic) CKD stage 3b, GFR 30-44 ml/min (Chronic) Stage 3b chronic kidney disease (CKD) (Chronic) Frequency of micturition (Chronic) CKD (chronic kidney disease) stage 3, GFR 30-59 ml/min (Acute) Contusion of left hand (Acute) EARLE (obstructive sleep apnea) (Chronic) CKD (chronic kidney disease) stage 2, GFR 60-89 ml/min (Chronic) GERD (gastroesophageal reflux disease) (Chronic) HTN (hypertension) (Chronic) Pulmonary edema (Chronic) Diabetes (Chronic) Morbid obesity with BMI of 40.0-44.9, adult (Chronic) CKD (chronic kidney disease) (Acute) Dyspnea (Chronic) Congestive heart failure (Chronic) Murmur (Chronic) Medical History Medical History Viral URI (09/13/10) Viral syndrome (09/14/09) Urinary incontinence, mixed (08/17/12) Uric acid nephrolithiasis (04/11/18) Toothache (01/12/22) Tinnitus (12/21/21) Thrombocytopenia (08/09/23) Somnolence (08/23/14) Shoulder pain, left (04/22/16) Sepsis (10/25/23) Seborrheic dermatitis (02/02/21) Screening for breast cancer (04/15/15) Renal insufficiency (05/18/12) Rectal bleeding (11/09/09) Pneumonia (09/16/10) Pleural effusion (04/29/21) Paranoia (02/02/21) Pancytopenia (11/02/23) Other injury of unspecified body region, sequela (12/31/21) Other injury of unspecified body region, initial encounter (12/06/23) Osteoporosis (08/10/22) Osteopenia (04/30/13) Nonischemic cardiomyopathy (12/21/21) Muscle twitch (04/01/20) Menopausal syndrome (05/02/08) Low back pain (04/22/16) Lipoma of unspecified site (12/10/10) Leg pain, left (05/02/08) Joint pain (06/17/22) Jaw pain (05/12/23) Impaired fasting glucose (06/24/16) Hyperlipidemia (05/24/10) Hyperbilirubinemia (08/12/15) Hip pain, left (10/02/09) Hemorrhoids (12/20/06) Hematuria (11/01/17) Hearing loss, bilateral (12/21/21) Grief reaction (01/17/12) Gout (08/09/23) Gastroenteritis (01/25/08) Folliculitis (09/22/10) Flu syndrome (08/09/13) Fatigue (03/12/13) Exposure to second hand smoke (11/01/17) Epigastric pain (08/25/08) Endocarditis, valve unspecified, unspecified cause (08/09/23) Edema (04/30/13) Dyspnea on exertion (04/17/14) Diverticulitis (07/24/06) Diabetes mellitus, type II (02/02/21) Depression (01/17/12) Dementia, unspecified, with behavioral disturbance (12/21/21) Constipation (10/25/23) Chronic kidney disease, stage 3a (04/29/21) Cataracts, bilateral (12/21/21) Carpal tunnel syndrome, bilateral (04/22/16) Cardiomegaly (11/01/12) Bronchitis, acute (11/01/12) Bitten by dog, initial encounter (08/09/23) Balance problem (04/22/16) Aortic stenosis, severe (04/12/21) Anxiety (09/06/18) Acute coronary syndrome (09/05/18) Abnormal electrocardiogram (08/25/08) Abdominal pain (08/11/15) Abdominal bloating (05/02/08) Sepsis secondary to UTI Recurrent UTI History of transcatheter aortic valve replacement (TAVR) ICD (implantable cardioverter-defibrillator) in place Surgical History Surgical History Heart valve replaced 2021 History of cholecystectomy 2016 Family History Family History Mother Liver cancer Other Diabetes Heart disease High blood pressure Social History Social History Smoking Status: Never smoker Second hand tobacco smoke exposure: No Do you dip or chew tobacco?: No Do you vape?: No Living arrangement: At home Marital Status: Living Condition: With family Support Person: Yes Relationship Notes: daughter Physical Activity: other Level: Assisted Home Mobility Equipment: Wheelchair Do you feel safe in your home environment?: Yes History of physical, verbal, emotional, or financial abuse?: No ETOH Use: None Substance Use: denies use POLST Patient has POLST: Yes Review of Systems Status of ROS: 10 or more systems reviewed and unremarkable except as noted in history and below Exam Constitutional normal general appearance and no apparent distress HENMT normocephalic Eyes PERRL Respiratory breath sounds equal bilaterally and normal respiratory effort Cardiovascular normal heart rate noted Gastrointestinal abdomen normal to inspection Extremities normal to inspection Neurology GCS 15 Psychiatry Oriented x 2, conversant, defers discussion on plan of care to her daughter Skin skin color normal Conclusion/Plan Problem List (1) Delirium: Plan: Family is reporting that her mentation is not what it normally is She is oriented x 2, initially responded to what year it was as 1940 Family reports she has a pacemaker, so unable to obtain MRI Daughter reported that her mentation has acutely changed over the past 3 weeks, reports confusion, disorientation, urinary frequency/urgency (2) Pericarditis: Plan: Pericardial effusion noted incidentally on CT chest ED provider contacted cardiology, who reports this is likely pericarditis Colchicine 0.6 mg p.o. twice daily Toradol 15 mg IV push every 6 hours as needed for pain Check echo Daughter reports that she has extensive history of pericarditis, possibly also endocarditis. Is on suppressive amoxicillin, managed by an ID doctor at [place]. Reports transesophageal echo at [facility]. Will attempt to get records from all of the above Qualifiers: Chronicity: unspecified Pericarditis type: unspecified type Qualified Code(s): I31.9 - Disease of pericardium, unspecified (3) Acute lumbar myofascial strain: Plan: Back pain after fall CT pelvis with no acute findings This is likely musculoskeletal pain Tylenol, Toradol as needed Avoiding muscle relaxers that she is here for delirium Qualifiers: Encounter type: initial encounter Qualified Code(s): S39.012A - Strain of muscle, fascia and tendon of lower back, initial encounter (4) Cystitis: Plan: Was diagnosed with UTI at [facility], is supposed to be completing a course of Keflex I will place her on Rocephin 1 g IV push daily Plan Place in observation Full code Her daughter is her surrogate decision maker Daughter reports she has POLST Lab Results Lab results reviewed: Yes 05/23/25 11:33 05/23/25 11:33
[2025-05-23] MEDS ORDERED: ONDANSETRON ODT 4 MG TABLET TL PRN (19:03)
[2025-05-23] MEDS ORDERED: SODIUM CHLORIDE FLUSH 0.9% 10 ML SYRINGE IVP PRN (19:03)
[2025-05-23] MEDS ORDERED: ONDANSETRON 4 MG/2 ML VIAL IVP PRN (19:03)
[2025-05-23] MEDS: cefTRIAXone 1 GM VIAL IVP SCH (23:33)
[2025-05-23] MEDS: MIRTAZAPINE 15 MG TABLET PO SCH (23:34)
[2025-05-23] MEDS: COLCHICINE 0.6 MG TABLET PO SCH (23:34)
[2025-05-24] MEDS: SODIUM CHLORIDE FLUSH 0.9% 10 ML SYRINGE IVP SCH (00:03)
[2025-05-24 04:58] LABS: HCT - HEMATOCRIT 39.1 % (37.0-47.0); HGB - HEMOGLOBIN 12.9 g/dL (12.0-16.0); MEAN PLATELET VOLUME 9.7 fL (7.9-10.8); NRBC ABSOLUTE COUNT (AUTO) 0.00 x10^3/uL; NUCLEATED RED BLOOD CELLS AUTO 0.0 /100WBC; PLT - PLATELET COUNT 109 10^3/uL (130-450); RED CELL DISTRIBUTION WIDTH 12.9 % (12.0-15.0)
[2025-05-24 05:18] LABS: BUN - BLOOD UREA NITROGEN 26.0 mg/dL (6-20); CARBON DIOXIDE - CO2 22.0 mmol/L (21-32); CREATININE 1.0 mg/dL (0.6-1.3); GFR - MDRD 53.0 (>89)
[2025-05-24] MEDS: ENOXAPARIN 40 MG/0.4 ML SYRINGE SUBQ SCH (09:23)
[2025-05-24] MEDS: KETOROLAC 15 MG/ML VIAL IVP PRN (09:58)
--- NOTE | 2025-05-24 13:39 | Discharge Summary ---
Discharge Summary Admit Date: 05/23/25 Discharge Date: 05/25/25 Discharging Provider: Steve Phillips Primary Care Provider: Valeria Mcneill Code Status: Attempt Resuscitation DIAGNOSES Discharge Diagnoses with Status of Each Condition: Deliriumimproved, I suspect likely related to infection Pericarditisdischarging on colchicine Acute lumbar myofascial straincan manage with OTCs Cystitisshe was on Rocephin while in the hospital, discharging on prior dose of cefdinir HPI History of Present Illness: 80-year-old female with history of dementia, atrial fibrillation on Pradaxa, CHF HFrEF as of echocardiogram 04/06 presents to the hospital because She has been having falls. She had a fall 2 days ago, and was worked up at [facility] and found to have a UTI. She reports that she is still having pain in her left hip as well as her left chest wall and in her coccyx. Her daughter reports that she has been increasingly confused, so she was brought to [facility] ER. Denies fever, chills, dyspnea, bowel/bladder abnormality In the ER, lab work was overall unremarkable. CT head, pelvis, L-spine all without acute findings. Her CT chest, however, showed a pericardial effusion. Cardiology was consulted by the ER provider, and they reported that this is quite possibly pericarditis, and recommended observation with colchicine. Patient is being placed in observation for increased confusion as well as her pericarditis HOSPITAL COURSE Hospital Course: Patient was held in observation and started on Rocephin for her UTI that was diagnosed at [facility]. I started her on colchicine, which she will continue outpatient. Echocardiogram was completed, awaiting read. She has history of pericarditis and TAVR, on suppressive antibiotics. I strongly suggest that she follow-up with her infectious disease provider for ongoing recommendations. I have also instructed her to follow-up with cardiology and PCP. I would recommend outpatient referral to neurology to rule out any other causes of her worsening mentation. She will finish her course of cefdinir prescribed at [facility], and then we will restart her suppressive amoxicillin as directed by her infectious disease provider ALLERGIES Allergies Allergy/AdvReac Type Severity Reaction Status Date / Time codeine Allergy Intermediate Nausea Verified 05/23/25 09:39 aspirin Allergy Unknown Verified 05/23/25 09:39 egg Allergy Cramps Verified 05/23/25 09:39 metoprolol Allergy Unknown Verified 05/23/25 09:39 morphine Allergy Unknown Verified 05/23/25 09:39 simvastatin (From Zocor) Allergy Unknown Verified 05/23/25 09:39 Sulfa (Sulfonamide Allergy Unknown Verified 05/23/25 09:39 Antibiotics) hydrocodone bitartrate * AdvReac Intermediate Nausea Verified 05/23/25 09:39 (From Vicodin) oxycodone HCl * (From AdvReac Intermediate Nausea Verified 05/23/25 09:39 Percocet) acetaminophen (From Tylenol) AdvReac Mild Nausea Verified 05/23/25 09:39 lactose AdvReac Mild Diarrhea Verified 05/23/25 09:39 latex AdvReac Rash Verified 05/23/25 09:39 MEDICATIONS Ambulatory Orders Medication Instructions Recorded Confirmed dabigatran etexilate 75 mg capsule 150 mg PO BID 04/0705/25/25 (Pradaxa) multivitamin 1 tab PO DAILY 04/07/2104/10 mecobalamin (vitamin B12) 1,000 1,000 mcg PO QDAY 08/1805/25/25 mcg chewable tablet melatonin 10 mg capsule 10 mg PO HS PRN sleep 05/25/25 spironolactone 25 mg tablet 25 mg PO QAM Diuretic 08/1805/25/25 walker #1 ea 09/17/24 04/21/25 atorvastatin 20 mg tablet 20 mg PO QPM #90 tabs 05/24/25 carvedilol 3.125 mg tablet 3.125 mg PO BID Beta Blocke r, 12/17/24 05/24/25 Prosthetic valve #60 tabs donepezil 10 mg tablet 10 mg PO Q OTHER DAY Memory #60 12/17/24 05/24/25 tabs mirtazapine 7.5 mg tablet 7.5 mg PO .nightly 12/17/24 05/24/25 Memory/Depression #60 tabs furosemide 40 mg tablet 40 mg PO Q OTHER DAY PRN fern ma #30 04/09/25 05/24/25 tabs amoxicillin 500 mg capsule 500 mg PO Q12H Prophylaxis #60 04/21/25 05/24/25 caps memantine 21 mg capsule 21 mg PO QDAY #90 ea 5 05/24/25 sprinkle,extended release 24hr colchicine 0.6 mg tablet 0.6 mg PO BID 90 days #180 t abs 05/24/25 allopurinol 200 mg tablet 200 mg PO BID 05/25/2505/25 olanzapine 2.5 mg tablet 2.5 mg PO DAILY 05/25/2504/10 olanzapine 2.5 mg tablet (Zyprexa) 5 mg PO QPM Memory 05/25/25 05/25/25 PHYSICAL EXAM AT DISCHARGE Vital Signs: Vital Signs x48h Temp Pulse Resp BP Pulse Ox 05/25/25 17:00 98.1 F 70 16 118/62 100 Physical Exam Other/Comments: Constitutional normal general appearance and no apparent distress HENMT normocephalic Eyes PERRL Respiratory breath sounds equal bilaterally and normal respiratory effort Cardiovascular normal heart rate noted Gastrointestinal abdomen normal to inspection Extremities normal to inspection Neurology GCS 15 Psychiatry Oriented x 2, conversant Skin skin color normal LABS 05/25/25 04:26 05/25/25 04:26 DIAGNOSTIC IMAGING Diagnostic Imaging Results Comments: Echocardiogram performed, awaiting read FOLLOW UP Follow Up: With PCP, cardiology, infectious disease. Recommend outpatient referral to neurology and outpatient PT TIME SPENT Time Spent in Discharge (Minutes): 39 Discharge Plan Discharge Patient Disposition: Home, Self Care Condition: Stable Prescriptions: New colchicine 0.6 mg Tablet 0.6 mg PO BID 90 Days Qty: 180 0RF Continued furosemide 40 mg tablet 40 mg PO Q OTHER DAY MDD up to 60mg PRN (Reason: edema) Qty: 30 0RF Rx Instructions: up a half for 3 days = 60mg to reduce ankle swelling dabigatran etexilate [Pradaxa] 75 MG capsule 150 mg PO BID multivitamin 1 EACH tablet 1 tab PO DAILY spironolactone 25 mg tablet 25 mg PO QAM Patient Comments: HOLD for low normo-tensive B/P carvedilol 3.125 mg tablet 3.125 mg PO BID Qty: 60 4RF Rx Instructions: Historically tolerated atorvastatin 20 mg tablet 20 mg PO QPM Qty: 90 3RF donepezil 10 mg tablet 10 mg PO Q OTHER DAY Qty: 60 3RF mirtazapine 7.5 mg tablet 7.5 mg PO .nightly Qty: 60 4RF (KIM) walker Misc See Rx Instructions .Route Qty: 1 0RF Rx Instructions: As directed Heavy Duty Rollator walker with brakes, basket, wide bench mecobalamin (vitamin B12) 1,000 mcg tablet,chewable 1,000 mcg PO QDAY melatonin 10 mg capsule 10 mg PO HS PRN (Reason: sleep) amoxicillin 500 mg capsule 500 mg PO Q12H Qty: 60 1RF memantine 21 mg capsule,sprinkle,ER 24hr 21 mg PO QDAY Qty: 90 0RF No Action olanzapine 2.5 mg tablet 2.5 mg PO DAILY olanzapine [Zyprexa] 2.5 mg tablet 5 mg PO QPM allopurinol 200 mg tablet 200 mg PO BID Activity Restrictions: No Restrictions Diet: Cardiac Health Concerns: You came into the hospital because you were reported to be confused and acting in ways that do not make sense. You had a extensive workup in the ED which was overall unremarkable. I am not seeing any changes in your chemistry panel or an your CBC. Your urine was clear when we checked it, however you are undergoing a course of antibiotics for UTI identified at [facility]. We did, however, find some fluid around your heart when we did a CT of your chest. We discussed this with cardiology, who reported that this is likely pericarditis. We started you on a medication called colchicine, which I would like for you to continue taking at home. Your daughter informed me you are on long-term suppressive antibiotics managed by infectious disease specialist. I would recommend that you follow-up with them. I cannot find any other cause in my workup for your delirium. This could be continued confusion from the infection that you had going on. I would like for you to follow-up with PCP, cardiology, infectious disease, and I would have your PCP consider referral to neurology. If your confusion is from your UTI, you should see your symptoms improve back to baseline or to a new baseline. We are unable to do MRI of your brain here because of your pacemaker. You may be referred to an outpatient MRI at a facility where they can perform this with your pacemaker Please continue the cefdinir that you were prescribed from [facility]. Print Language: Lebanese Patient Instructions: UTIs Stand Alone Forms: PCP List Follow-up Care: Valeria Mcneill, MARKETING RESEARCHER, MSN, TECHNICAL SALES ASSOCIATE [Primary Care Provider, Family Practice] Vitals documented within 30 minutes of discharge?: Yes (36.7 100% 70bpm 16 118/62mmHg)
--- NOTE | 2025-05-24 16:03 | PROVIDER PROGRESS NOTE ---
Subjective Prog Note Date Prog Note Date: 05/24/25 Subjective Pt reports feeling: No change Current Medications Current Medications Current Medications: Current Medications Generic Name Dose Route Start Last Admin Trade Name Freq PRN Reason Stop Dose Admin Acetaminophen 650 mg 05/23/25 19:03 Acetaminophen 325 Mg Tablet PO Q4HR PRN Pain 1 to 4, or Fever Allopurinol 200 mg 05/23/25 23:00 05/24/25 09:23 Allopurinol 100 Mg Tablet PO 200 mg DAILY MARVEL Administration Carvedilol 3.125 mg 05/23/25 23:00 05/24/25 09:24 Carvedilol 3.125 Mg Tablet PO 3.125 mg BID MARVEL Administration Ceftriaxone Sodium 1 gm 05/23/25 21:56 05/24/25 09:59 Ceftriaxone 1 Gm Vial IVP 1 gm DAILY MARVEL Administration Colchicine 0.6 mg 05/23/25 21:00 05/24/25 09:27 Colchicine 0.6 Mg Tablet PO 0.6 mg BID MARVEL Administration Enoxaparin Sodium 40 mg 05/24/25 09:00 05/24/25 09:23 Enoxaparin 40 Mg/0.4 Ml Syringe SUBQ 40 mg DAILY MARVEL Administration Ketorolac Tromethamine 15 mg 05/23/25 18:42 05/24/25 09:58 Ketorolac 15 Mg/Ml Vial IVP 05/28/25 18:41 15 mg Q6HR PRN Administration Severe Pain (Level 7-10) Mirtazapine 7.5 mg 05/23/25 23:00 05/23/25 23:34 Mirtazapine 15 Mg Tablet PO 7.5 mg HS MARVEL Administration Olanzapine 5 mg 05/24/25 09:00 05/24/25 09:24 Olanzapine Odt 5 Mg Tablet TL 5 mg BID MARVEL Administration Ondansetron HCl 4 mg 05/23/25 19:03 Ondansetron Odt 4 Mg Tablet TL Q6HR PRN Nausea / Vomiting Ondansetron HCl 4 mg 05/23/25 19:03 Ondansetron 4 Mg/2 Ml Vial IVP Q6HR PRN Nausea / Vomiting Sodium Chloride 10 ml 05/23/25 19:03 Sodium Chloride Flush 0.9% 10 Ml Syringe IVP PRN PRN NEEDED PER PROVIDER ORDERS Sodium Chloride 10 ml 05/24/25 01:00 05/24/25 09:59 Sodium Chloride Flush 0.9% 10 Ml Syringe IVP 10 ml 0100,0900,1700 MARVEL Administration Objective Vital Signs/Intake & Output Reviewed Vital Signs: Yes Vital Signs: Vital Signs x48h Temp Pulse Resp BP Pulse Ox 05/24/25 12:00 97.7 F 70 18 101/53 L 97 Intake & Output: Intake & Output 05/21/25 05/22/25 05/23/25 05/24/25 23:59 23:59 23:59 23:59 Intake Total 300 / 300 340 / 340 Output Total 200 / 200 1200 / 1200 Balance 100 / 100 -860 / -860 Weight (kg) 99 kg Objective General Appearance: positive No acute distress, Alert and Other (Hyperactive) Eyes Bilateral: positive Normal inspection Respiratory: positive Chest non-tender and No respiratory distress Cardiovascular: positive Regular rate & rhythm Abdomen: positive Non-tender Skin: positive Color nml Extremities: positive Non-tender Neurologic/Psychiatric: positive Other (Oriented x 2. Hyperactive. Frequently forgets that she is on PureWick) Lab Results 05/24/25 04:30 05/24/25 04:30 Other Labs: Lab Results x24hrs 05/24/25 05/23/25 Range/Units 04:30 18:33 WBC 4.8 (4.8-10.8) x10^3/uL RBC 3.87 L (4.20-5.40) 10^6/uL Hgb 12.9 (12.0-16.0) g/dL Hct 39.1 (37.0-47.0) % MCV 101.0 H (81.0-99.0) fL MCH 33.3 H (27.0-31.0) pg MCHC 33.0 (32.0-36.0) g/dL RDW 12.9 (12.0-15.0) % Plt Count 109 L (130-450) 10^3/uL MPV 9.7 (7.9-10.8) fL Neut # (Auto) 4.1 (1.5-6.6) 10^3/uL Lymph # (Auto) 0.7 L (1.5-3.5) 10^3/uL [place] # (Auto) 0.1 (0.0-1.0) 10^3/uL Eos # (Auto) 0.0 (0.0-0.7) 10^3/uL Baso # (Auto) 0.0 (0.0-0.1) 10^3/uL Absolute Nucleated RBC 0.00 x10^3/uL Nucleated RBC % 0.0 /100WBC ESR 23 (0-30) mm/Hr Sodium 138 (135-145) mmol/L Potassium 4.5 (3.5-4.5) mmol/L Chloride 104 (101-111) mmol/L Carbon Dioxide 22 (21-32) mmol/L Anion Gap 12.0 (6-13) BUN 26 H (6-20) mg/dL Creatinine 1.0 (0.6-1.3) mg/dL Estimated GFR (MDRD) 53 L (>89) Glucose 132 H (74-104) mg/dL Calcium 9.1 (8.5-10.3) mg/dL C-Reactive Protein < 0.5 (<0.5) mg/dL Assessment/Plan Problem List (1) Delirium: Impression: Daughter reported that her mentation has been getting worse over the past 3 weeks. She was seen at [facility] and diagnosed with UTI and started on antibiotics for this. She reports disorientation, urinary frequency/urgency, reports strange behaviors such as putting on 2 pairs of glasses and wants 05/24: Patient is hyperactive, requires frequent reorientation. I suspect that this is acute delirium secondary to UTI versus worsening of her dementia. I am unable to perform MRI at this hospital due to her pacemaker (2) Pericarditis: Impression: Daughter reports that she has extensive history of pericarditis, possibly also endocarditis. Is on suppressive amoxicillin, managed by an ID doctor at [facility]. Reports transesophageal echo at [facility]. Will attempt to get records from all of the above Pericardial effusion noted incidentally on CT chest ED provider contacted cardiology, who reports this is likely pericarditis Colchicine 0.6 mg p.o. twice daily Toradol 15 mg IV push every 6 hours as needed for pain Echo performed, awaiting read Qualifiers: Chronicity: unspecified Pericarditis type: unspecified type Qualified Code(s): I31.9 - Disease of pericardium, unspecified (3) Acute lumbar myofascial strain: Impression: Back pain after fall CT pelvis with no acute findings This is likely musculoskeletal pain Tylenol, Toradol as needed Avoiding muscle relaxers that she is here for delirium Qualifiers: Encounter type: initial encounter Qualified Code(s): S39.012A - Strain of muscle, fascia and tendon of lower back, initial encounter (4) Cystitis: Impression: Was diagnosed with UTI at [facility], is supposed to be completing a course of Cefdinir I will place her on Rocephin 1 g IV push daily
[2025-05-24] MEDS: SENNA 8.6 MG TABLET PO SCH (17:57)
[2025-05-24] MEDS: ACETAMINOPHEN 325 MG TABLET PO PRN (19:15)
--- NOTE | 2025-05-24 20:51 | ECHO Report ---
Version: 1 Study ID: [id number] Adult Echocardiogram Report Name: AVERY PANIAGUA Study Date: 05/24/2025, 11: 15 AM BP: 134 / 77 mmHg Patient Location: NC3^[facility]^01 HR: 84 bpm : 1945 (MM/DD/YYYY) Gender: Female Height: 70 in Age: 80 Years Weight: 218 lb BSA: 2.17 m² Reason For Study: pericarditis History: Technically difficult study. History of Pacemaker, History of severe Aortic valve stenosis with Peak Grad. of 97 mmHg/Mean Grad of 65 mmHg, EF 35-40% on previous Echo of 04/07/2021. 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 Interpretation Summary There is moderate concentric increase in the wall thickness of the left ventricle. Global left ventricular systolic function is normal. The visual left ventricular ejection fraction is estimated at 50 to 55%. The right ventricle is normal in size and function. The prosthetic aortic valve is not well visualized. Aortic valve Peak velocity 210 cm/sec. PGRAD 17 mmHg, MnGrad 10 mmHg, Left Ventricle: The left ventricle is mildly dilated. There is moderate concentric increase in the wall thickness of the left ventricle. The visual left ventricular ejection fraction is estimated at 50 to 55%. Global left ventricular systolic function is normal. Right Ventricle: The right ventricle is normal in size and function. A pacer/defibrillator lead is present in the right heart. Aortic Valve: The prosthetic aortic valve is not well visualized. The mean gradient is normal for this prosthetic aortic valve. Aortic valve Peak velocity 210 cm/sec. PGRAD 17 mmHg, MnGrad 10 mmHg,. Mitral Valve: The mitral valve leaflets are structurally normal with normal motion. No evidence of mitral stenosis is seen. There is trace mitral regurgitation. Tricuspid Valve: The tricuspid valve is normal in structure and function. There is no tricuspid stenosis. Mild tricuspid regurgitation present. Pulmonic Valve: The pulmonic valve is normal in structure and function. There is no pulmonic valvular stenosis. Trace pulmonic valvular regurgitation is present. Left Atrium: The left atrial size is normal. Right Atrium: Right atrial size is normal. The inferior vena cava appears normal. Atrial Septum: The interatrial septum is not well seen. Interatrial shunt cannot be excluded. Aorta: The ascending aorta is moderately dilated (4.5 to 5.0cm). The diameter of the ascending aorta is 4.5 cm. The sinuses of Valsalva are normal in size. Pulmonary Artery: The pulmonary artery is not well visualized, but is probably normal size. The pulmonary artery systolic pressure is normal. Inferior vena cava dynamics indicate normal right atrial pressures. The right ventricular systolic pressure is 32mmHg. Pericardium/Pleural Space: Small Pericardial Effusion. Left Ventricle IVSd: 1.69 cm LVIDd: 5.7 cm LVPWd: 1.31 cm LVIDs: 3.5 cm ESV(sp4-el): 76.5 ml Atria LA dimension: 5.2 cm LAV(MOD-sp4): 50.7 ml LAV(MOD-sp2): 45.2 ml Diastolic Function MV dec time: 0.26 sec MV E max anthony: 57.4 cm/sec MV A max anthony: 69.7 cm/sec Aortic Valve LV V1 mean P.46 mmHg LV V1 mean: 56.9 cm/sec LV V1 VTI: 20.0 cm Ao V2 VTI: 41.8 cm Ao mean P.8 mmHg Ao V2 mean: 142.5 cm/sec LV V1 max: 76.7 cm/sec LV V1 max P.35 mmHg Ao max P.4 mmHg Ao V2 max: 208.7 cm/sec Mitral Valve MV max P.18 mmHg MV V2 max: 73.9 cm/sec MV mean P.07 mmHg MV V2 mean: 49.4 cm/sec MV V2 VTI: 20.7 cm Tricuspid Valve TR max P.0 mmHg TR max anthony: 269.1 cm/sec TV max P.0 mmHg Aorta Ao root diam: 3.5 cm MMode/2D Measurements & Calculations Ao root diam: 3.5 cm BMI: 31.3 kilograms/m² BSA([facility]): 2.24 m² ESV(sp4-el): 76.5 ml IVSd: 1.69 cm LA A4C-A/L: 22.7 cm² LA dimension: 5.2 cm LA ESV-A/L: 74.0 ml LAV(MOD-sp2): 45.2 ml LAV(MOD-sp4): 50.7 ml LVIDd: 5.7 cm LVIDs: 3.5 cm LVPWd: 1.31 cm Doppler Measurements & Calculations Ao max P.4 mmHg Ao mean P.8 mmHg Ao V2 max: 208.7 cm/sec Ao V2 mean: 142.5 cm/sec Ao V2 VTI: 41.8 cm LV V1 max: 76.7 cm/sec LV V1 max P.35 mmHg LV V1 mean: 56.9 cm/sec LV V1 mean P.46 mmHg LV V1 VTI: 20.0 cm MV A max anthony: 69.7 cm/sec MV dec time: 0.26 sec MV DVI-pr: 0.82 MV E max anthony: 57.4 cm/sec MV max P.18 mmHg MV mean P.07 mmHg MV V2 max: 73.9 cm/sec MV V2 mean: 49.4 cm/sec MV V2 VTI: 20.7 cm PA max P.3 mmHg PA V2 max: 91.1 cm/sec TR max P.0 mmHg TR max anthony: 269.1 cm/sec TV max P.0 mmHg Other Measurements & Calculations Ao root area: 9.8 cm² EDV(Teich): 159.0 ml EF(sp-el): 50.0 % EF(Teich): 68.1 % ESV(Teich): 50.7 ml FS: 38.5 % MV E/A: 0.82 MD Avis Batista 05/24/2025, 8: 51 PM Ordering Physician: Steve Phillips Referring Physician: Adiel Lindsay Performed By: DANY
[2025-05-25 05:03] LABS: HCT - HEMATOCRIT 33.3 % (37.0-47.0); HGB - HEMOGLOBIN 11.0 g/dL (12.0-16.0); MEAN PLATELET VOLUME 9.5 fL (7.9-10.8); NRBC ABSOLUTE COUNT (AUTO) 0.00 x10^3/uL; NUCLEATED RED BLOOD CELLS AUTO 0.0 /100WBC; PLT - PLATELET COUNT 87 10^3/uL (130-450); RED CELL DISTRIBUTION WIDTH 13.5 % (12.0-15.0)
[2025-05-25 05:12] LABS: BUN - BLOOD UREA NITROGEN 43.0 mg/dL (6-20); CARBON DIOXIDE - CO2 25.0 mmol/L (21-32); CREATININE 1.4 mg/dL (0.6-1.3); GFR - MDRD 36.0 (>89)
--- NOTE | 2025-05-25 08:35 | PHARMACY PROGRESS NOTE ---
Best Possible Medication History Admit Date and Time: 05/24/25 1547 Home Medications Medication Instructions Recorded Confirmed Type dabigatran etexilate 75 mg capsule 150 mg PO BID 04/0705/25/25 History (Pradaxa) multivitamin 1 tab PO DAILY 04/07/2104/10 History mecobalamin (vitamin B12) 1,000 1,000 mcg PO QDAY 08/1805/25/25 History mcg chewable tablet melatonin 10 mg capsule 10 mg PO HS PRN sleep 05/25/25 History spironolactone 25 mg tablet 25 mg PO QAM Diuretic 08/1805/25/25 History walker #1 ea 09/17/24 04/21/25 Rx atorvastatin 20 mg tablet 20 mg PO QPM #90 tabs 05/24/25 Rx carvedilol 3.125 mg tablet 3.125 mg PO BID Beta Blocke r, 12/17/24 05/24/25 Rx Prosthetic valve #60 tabs donepezil 10 mg tablet 10 mg PO Q OTHER DAY Memory #60 12/17/24 05/24/25 Rx tabs mirtazapine 7.5 mg tablet 7.5 mg PO .nightly 12/17/24 05/24/25 Rx Memory/Depression #60 tabs furosemide 40 mg tablet 40 mg PO Q OTHER DAY PRN fern ma #30 04/09/25 05/24/25 Rx tabs amoxicillin 500 mg capsule 500 mg PO Q12H Prophylaxis #60 04/21/25 05/24/25 Rx caps memantine 21 mg capsule 21 mg PO QDAY #90 ea 5 05/24/25 Rx sprinkle,extended release 24hr colchicine 0.6 mg tablet 0.6 mg PO BID 90 days #180 t abs 05/24/25 Rx allopurinol 200 mg tablet 200 mg PO BID 05/25/2505/25 History olanzapine 2.5 mg tablet 2.5 mg PO DAILY 05/25/2504/10 History olanzapine 2.5 mg tablet (Zyprexa) 5 mg PO QPM Memory 05/25/25 05/25/25 History Processed by: Pharmacy Medications reviewed in ED?: No Medication History completed: Yes Patient Interview: Pt unable to participate Secondary Source(s): Previous admit records [facility] Statement: As the person ultimately responsible for medication therapy, providers are able to order a medication from an existing home medication list in [facility] via the "Reconcile Routine" prior to Confirmation of that medication by technician support engineer. Such practice is discouraged except when the physician, in their clinical judgment, deems that a medical need exists for a medication without regard to previous use.
[2025-05-25] MEDS: LACTATED RINGERS 1,000 ML IV SCH (10:27)
[2025-05-25 17:19] VITALS: BP 118/62; TEMP 98.1; O2SAT 100
== END 2025-05-25 17:00 | disposition home or self-care (01) | DRG 315 ==
LOC: MS3 09:16 → ED 09:16 → MS3 19:10
PROVIDERS: ADMIT Nurse Practitioner Acute Care; ATTEND Nurse Practitioner Acute Care
DX: F03.90 Unspecified dementia, unspecified severity, without behavioral disturbance, psychotic disturbance, mood disturbance, and anxiety; I48.91 Unspecified atrial fibrillation; I71.21 Aneurysm of the ascending aorta, without rupture; I31.39 Other pericardial effusion (noninflammatory); Z79.01 Long term (current) use of anticoagulants; N30.90 Cystitis, unspecified without hematuria; S30.0XXA Contusion of lower back and pelvis, initial encounter; Z79.899 Other long term (current) drug therapy; Z91.81 History of falling; Z95.810 Presence of automatic (implantable) cardiac defibrillator; W17.89XA Other fall from one level to another, initial encounter; I31.9 Disease of pericardium, unspecified; S20.212A Contusion of left front wall of thorax, initial encounter; Z95.2 Presence of prosthetic heart valve; S39.012A Strain of muscle, fascia and tendon of lower back, initial encounter; I50.22 Chronic systolic (congestive) heart failure; R41.0 Disorientation, unspecified; D64.9 Anemia, unspecified; I50.20 Unspecified systolic (congestive) heart failure